=== PATIENT | male | born 1965 | race Caucasian/White ===

== ENCOUNTER 2016-09-04 21:56 | Inpatient (IN) | payer OTHER ==
[~2016-09-04] VITALS: Ht 188 cm; Wt 102.7 kg
[~2016-09-04 21:56] MED LIST: FURO40TA4 PO; NADO80TA PO; PANT40TA3 PO; SPIR50TA2 PO
[2016-09-04 22:00] VITALS: BP 142/70; PULSE 119; RESP 24; O2SAT 98
--- NOTE | 2016-09-04 22:28 | ED.REPORT ---
HPI-General Illness Date of Service Sep 04, 2016 ED Provider: Raghav Wang MD A 51 year old male with a history of liver cirrhosis, cholelithiasis, and esophageal varices presents to the ED complaining of Fever (max temp 104) and chills onset 1914 today. At onset, the patient's temperature was 102.9, measured while patient was under blankets. The patient took Motrin, and measured their temperature 45 minutes later with a result of 104. Associated symptoms include cough that accompanies deep inspiration, and headache. The patient denies any abdominal pain. He has been told not to take Tylenol. The patient denies having had cholecystectomy in the past. Nursing Notes Stated Complaint: HIGH FEVER Chief Complaint: General Complaint Nursing Notes Reviewed: Yes Allergies: Coded Allergies: No Known Allergies (Unverified , 09/17/15) Scheduled Furosemide (Furosemide) 40 Mg Tablet 40 MG PO DAILY Nadolol (Nadolol) 80 Mg Tablet 80 MG PO DAILY Pantoprazole DR (Pantoprazole DR) 40 Mg Tablet.dr 40 MG PO DAILY Spironolactone (Spironolactone) 50 Mg Tablet 50 MG PO BID General Time Seen by MD: 22:20 Chief Complaint Fever Hx Obtained From: Patient, Spouse Sudden in Onset?: Yes Onset Occurred: 1 - 4 hours ago Symptom Duration: Since onset Severity: Current: Moderate Severity: Maximum: Moderate Recent Healthcare: No recent doctor visit Similar Sx Previous: No Past Medical History Past Medical History Notes: Patient is being seen by Dr. Frances at [facility]. Past Medical History Cirrhotic liver disease. Cholelithiasis. Esophageal varices. GI Bleed. Patient did get flu shot this year. Not on blood thinners, blood is thin due to liver disease. He does not take vitamin K. The patient visited the ED last year with cholelithiasis and fever, but did not recieve cholecystectomy. Patient does not take any pain medications. Past Surgical History Denies: Cholecystectomy Smoking History Never Smoker Ambulatory Status Independent Review of Systems Full Review of Systems Constitutional: Reports: Chills, Fever Respiratory: Reports: Non-productive cough (accompanies deep inspiration.) GI: Denies: Abdominal pain Neurologic: Reports: Headache Complete sys rev & neg: except as marked. Physical Exam Vital Signs Vital Signs Date Time Temp Pulse Resp B/P Pulse Ox O2 Delivery O2 Flow Rate FiO2 09/05/16 00:11 37.4 4/5/17 22:00 39.1 119 24 142/70 98 Room Air Initial VS: Reviewed, Vital signs abnormal Respiratory: Breath sounds normal, Clear to auscultation, No respiratory distress Cardiovascular: Regular rate & rhythm, Heart sounds normal Abdomen / GI: Soft, Non-tender, No guarding, No rebound General/Constitutional: Awake, Alert Patient is not icteric. They are a little dehydrated, lips are dry. Head / Eyes: Atraumatic, Normocephalic, PERRL, EOMI Neck: Supple (Neck is fully supple) Upper Extremities Upper Extremity / MS: No swelling, No edema Skin: Warm, Dry Neurologic: Oriented X3, Speech NL Interpretation & Diagnostics Lab Results Interpretation Result Diagram: 09/04/16220909/04/162209 Test 09/04/16 22:10 09/04/16 23:43 White Blood Count 5.8th/mm3 (3.8-10.1) Red Blood Count 3.94mil/mm3 (4.40-5.80) Hemoglobin 13.2g/dL (13.8-17.2) Hematocrit 37.1% (41.0-50.0) Mean Corpuscular Volume 94.2fL (81-100) Mean Corpuscular Hemoglobin 33.5pg (27.0-35.0) Mean Corpuscular Hemoglobin Concent 35.6% (32.0-37.0) Red Cell Distribution Width 15.6% (12.3-15.4) Platelet Count 62bil/L (150-400) Neutrophils (%) (Auto) 91.0% (40-74) Lymphocytes (%) (Auto) 4.9% (14-46) Monocytes (%) (Auto) 2.9% (4-12) Eosinophils (%) (Auto) 0.7% (0-5) Basophils (%) (Auto) 0.2% (0-3) Prothrombin Time 12.5sec (8.1-12.5) Prothromb Time International Ratio 1.16ratio Sodium Level 136mEq/L (134-144) Potassium Level 3.6mEq/L (3.5-5.2) Chloride Level 106mEq/L (97-108) Carbon Dioxide Level 17mmol/L (18-29) Blood Urea Nitrogen 10mg/dL (6-24) Creatinine 0.57mg/dL (0.76-1.27) Estimat Glomerular Filtration Rate 159mL/min (>59) Glucose Level 168mg/dL (60-99) Lactic Acid Level 2.1mmol/L (0.4-2.0) Calcium Level 8.1mg/dL (8.5-10.1) Total Bilirubin 3.0mg/dL (0.0-1.2) Aspartate Amino Transf (AST/SGOT) 115U/L (0-50) Alanine Aminotransferase (ALT/SGPT) 66U/L (0-44) Alkaline Phosphatase 79U/L (25-150) Troponin T 0.010ug/L (0.0-0.011) Pro-B-Type Natriuretic Peptide 38.84pg/mL (0-121) Total Protein 5.7g/dL (6.4-8.4) Albumin 3.1g/dL (3.4-5.0) Procalcitonin 0.24ng/mL (0.00-0.08) Urine Color Cee (YELLOW) Urine Appearance Hazy (CLEAR,HAZY) Urine pH 6.0 (5.0-8.0) Urine Specific [place] 1.036 (1.003-1.035) Urine Protein 30mg/dL (NEG,TRACE) Urine Glucose (UA) 100mg/dL (NEGATIVE) Urine Ketones 15mg/dL (NEGATIVE) Urine Occult Blood Negative (NEGATIVE) Urine Nitrite Positive (NEGATIVE) Urine Bilirubin Moderate (NEGATIVE) Urine Ictotest Positive (Negative) Urine Urobilinogen >8mg/dL (NORMAL) Urine Leukocyte Esterase Negative (NEGATIVE) Urine RBC 0-2/hpf (0-2) Urine WBC 0-5/hpf (0-5) Urine Epithelial Cells Few/hpf (NONE-MOD) Urine Crystals None seen (NONE SEEN) Urine Bacteria Few/hpf (NONE-FEW) Urine Hyaline Casts None/lpf (NONE) Urine Granular Casts None seen (NONE SEEN) Urine Waxy Casts None seen (NONE SEEN) Urine Red Blood Cell Casts None seen (NONE SEEN) Urine White Blood Cell Casts None seen (NONE SEEN) Urine Mucus Present (None Seen) Urine Trichomonas None seen (NONE SEEN) Urine Yeast None (NONE SEEN) Urinalysis Comment Urine Culture Reflexed Indicated Lab Results Interpretation: Mildly elevated lactic acid and mildly decreased carbon dioxide. Elevated nonfasting blood glucose. ECG Interpretation ECG Interpretation: Rate is 116. Sinus tachycardia. Consider left atrial enlargement. Time: 01:50 Interpreted by: ED physician X-Ray Chest Interpretation Chest Xray Interpretation: IMPRESSION: Normal 09/05/2016, 0027. Interpretation / Wet Read by: Wet read Resident Re-Eval/Medical Decision Med Decision/Clinical Course 51-year-old male with a history of liver failure presents with fever. His physical examination is totally benign with no cause for fever found. He is tachycardic and does meet criteria for SIRS. I find no clues at this time for the source of the fever. Case was discussed with and the patient will be admitted for further observation. Cultures were obtained and he was hydrated. Antibiotics were withheld for the time being pending a source. Source of Hx: Old records Time of Eval: 22:32 Re-Evaluation/Progress Note: Rechecked patient and explained test to check his liver enzymes. Time of Eval: 00:52 Re-Evaluation/Progress Note: Rechecked patient who still feels terrible. Explained plan for admission. Patient understands and agrees with the plan. At recheck, neck is completely supple and nontender. Reviewed all systems for potential source of infection and all are negative. Consultation : Referral / Consult Name: Juan Qureshi MD Call Returned at: 01:02 Soil Analyst: Agrees with eval, Agrees with plan, Accepts admit Note: Discussed patient case with Dr. Qureshi who accepts patient admit. Counseled Regarding: Diagnosis, Lab results, Need for follow-up, When/why to return to ED Discharge & Departure Primary Impression: Fever, unknown origin Additional Impression: Dehydration Disposition: ADMITTED TO HOSPITAL Discharge Condition All VS Reviewed: Yes Condition: Stable Referrals: Jeana Reyes DO (PCP) Mari Attestation Portions of this note were transcribed by Damian Rowe. I, Dr. Wang personally performed the history, physical exam and medical decision-making; I reviewed and confirmed the accuracy of the information in the transcribed note. Signed by: Mari Kaufman, 09/05/2016, 0200. copies to: Jeana Reyes Howard L MD Sep 04, 2016 22:28 Damian Rowe Sep 04, 2016 22:35
[2016-09-04 22:55] LABS: BASOPHILS % (AUTO) 0.2 % (0-3); EOSINOPHILS % (AUTO) 0.7 % (0-5); MONOCYTES % (AUTO) 2.9 % (4-12); Mean Corpuscular Hemoglobin 33.5 pg (27.0-35.0); Mean Corpuscular Volume 94.2 fL (81-100); Platelet Count 62 bil/L (150-400)
[2016-09-04 23:12] LABS: INR 1.16 ratio
[2016-09-04 23:18] LABS: TROPONIN T 0.01 ug/L (0.0-0.011)
[2016-09-04] MEDS ORDERED: 0.9% Sodium Chloride 1,000 ML IV ONE (23:30)
[2016-09-04 23:53] LABS: APPEARANCE,URINE HAZY (CLEAR,HAZY); COLOR,URINE AMBER (YELLOW)
[2016-09-04 23:54] LABS: OCCULT BLOOD,URINE NEGATIVE (NEGATIVE); UROBILINOGEN,URINE >8 mg/dL (NORMAL)
[2016-09-05] VITALS (9 sets, daily range): BP systolic 95–113; BP diastolic 38–64; PULSE 89–112; RESP 16–22; O2SAT 92–99
[2016-09-05 00:38] LABS: ICTOTEST,URINE POSITIVE (Negative)
[2016-09-05] MEDS ORDERED: 0.9% Sodium Chloride 1,000 ML IV ONE (00:50)
[2016-09-05] MEDS: Dextrose 5% 0.45% NaCl 1,000 ML IV SCH ×2 (01:17→11:17)
[2016-09-05] MEDS ORDERED: Ondansetron 2 mg/mL 2 mL Inj IVPUSH PRN ×2 (01:20→02:55)
[2016-09-05] MEDS ORDERED: Alum-Mag Hydrox-Simeth 30 mL Suspension PO PRN ×2 (01:20→02:55)
--- NOTE | 2016-09-05 02:00 | PCM.HPMED ---
Subjective Date of Service Sep 05, 2016 Primary Provider: Admitting Physician: Juan Qureshi MD Primary Care Physician: Noplenin Attending Physician: Juan Qureshi MD Admit Status: From the Emergency Department Chief Complaint: Fever, chills, cough, headache History of Present Illness: Chau is a pleasant 51-year-old male with past medical history of liver cirrhosis diagnosed age 1.5 following a liver biopsy, history of cholelithiasis , and is not a surgical candidate due to his liver cirrhosis, history of esophageal varices, who presented to the ED for acute onset fever of 102.9 shortly after having eaten his dinner, with associated chills, rigors, nausea, and mild wheeze and headache onset 1715 on 09/04/2016. Patient states he felt ill suddenly, took one single dose of Motrin and 45 minutes later his temperature was 104.0 prompting his visit to the emergency department. Of note patient states he had very little to drink today and was only able to urinate a small amount of dark-colored urine. Patient denies chest pain, asthma, COPD, diaphoresis, cough, vomiting, diarrhea, constipation, abdominal pain, dysuria. Patient's fitness assistant is Dr. Estela mauricio at [facility]. Patient states he has a scheduled appointment on October 01 for endoscopy for 2 evaluate his esophageal varices which takes place every 2 years. Patient was admitted to the hospital for fever of unknown origin. Vitals: Temperature 39.1, pulse 119, respiratory rate 24, blood pressure 142/70 with a map of 94, pulse oximetry 98% on room air Repeat vitals: 37.4 Hemogram showed WBC's 5.8 with 91% neutrophils, H/H 13.2/37.1, platelet count 62 , Chemistry panel, sodium 136, potassium 3.6, chloride 106, CO2 17, BUN 10, creatinine 0.57, glucose 168, lactic acid 2.1, AST 1:15, ALT 66, troponin 0.010 , proBNP 38.84 In normal range PT and INR UA was significant for hazy urine, pH 6.0 ketones 15, positive nitrite moderate bilirubin, positive echo test, urine urobilinogen greater than 8, few urine bacteria, mucus present otherwise negative UA In ED patient received 2 L IV fluids. Patient was placed on D5 half-normal saline at rate of 100ml per hour Urine culture ordered and pending Blood Culture ordered and pending 2 Normal chest x-ray EKG showed sinus tachycardia with a rate of 116, normal FL interval, normal QT C , axis, no ST or T-wave abnormalities. Review of Systems: A comprehensive review of systems was conducted and was negative except as mentioned in history of present illness. Allergies Coded Allergies: No Known Allergies (Unverified , 09/17/15) Home Medications Furosemide (Furosemide) 40 Mg Tablet 40 MG PO DAILY Nadolol (Nadolol) 80 Mg Tablet 80 MG PO DAILY Pantoprazole DR (Pantoprazole DR) 40 Mg Tablet.dr 40 MG PO DAILY Spironolactone (Spironolactone) 50 Mg Tablet 50 MG PO BID Ursodiol [facility] Patient is being seen by Dr. Frances at [facility]. Cirrhotic liver disease. Cholelithiasis. Esophageal varices. GI Bleed. Patient did get flu shot this year. Not on blood thinners, blood is thin due to liver disease. He does not take vitamin K. The patient visited the ED last year with cholelithiasis and fever, but did not recieve cholecystectomy. Patient does not take any pain medications. Surgical History Denies: Cholecystectomy Family History Noncontributory Social History Hx Alcohol Use: No (none x's 6 yrs.) Hx Substance Use: No Smoking Status: Never Smoker Exam Vital Signs Vital Sign - Last Date Time Temp Pulse Resp B/P Pulse Ox O2 Delivery O2 Flow Rate FiO2 09/05/16 00:11 37.4 09/04/16 22:00 119 24 142/70 98 Room Air Intake and Output 09/04/16 09/04/16 09/05/16 Cumulative From/Thru 15:00 23:00 07:00 09/04/16 22:00 - 09/04/16 23:27 Intake Total 1000 ml 1000 ml Balance 1000 ml 1000 ml Intake IV Total 1000 ml 1000 ml Exam General: Alert and oriented 3 no acute distress sitting at the side of bed speaking in full sentences. HEENT: NC/AT, eyes, PERRLA, EOMI, neck, soft supple, no adenopathy, no JVD, no masses, no thyromegaly, throat mucous membranes pink and moist, no erythema, no exudates. Lungs: CTAB all wolff, no wheezes, no rhonchi, no crackles, no adventitious lung sounds, no use of accessory muscles of respiration, good air movement, good respiratory effort. Heart: Regular rate and rhythm, grade 2/6 systolic murmur heard best over the second intercostal space at the left sternal border, S1-S2 present, no rub, no click, no distant heart sounds, Abdomen: Soft, periumbilical tenderness 1.5 inches to the right of the umbilicus , positive viscerosomatic reflex/Barr's point at the tip of the 12th rib on the right consistent with acute appendicitis, mild right upper quadrant tenderness to palpation, abdomen is nondistended, bowel sounds active, no rebound, no guarding, right flank surgical scar status post liver biopsy. Genitourinary: No CVA tenderness, positive suprapubic tenderness. Extremities: Muscle strength, 5 out of 5 upper/lower extremity and symmetric laterally, pulses equal and symmetric upper/lower extremity including radial and dorsalis pedis, 1+ edema proximal to the ankles Neurologic: Grossly neurologically intact, speaking in full sentences, no focal neurological signs. Skin: Warm, dry, no rash, IV line left arm Psychiatric: mood and affect are congruent and appropriate. Lab and Diagnostics Result Diagram: 09/04/16220909/04/162209 Assessment & Plan # Fever of unknown origin, present on admission, active - Patient complained of acute onset chills, rigors, fever of 104.0, nausea onset 1715 on 09/04/2016 - In the ED.Temperature 39.1, pulse 119, respiratory rate 24, blood pressure 142 /70 with a map of 94, pulse oximetry 98% on room air - Likely secondary to acute appendicitis, versus urinary tract infection - Urine culture ordered and pending - Culture ordered and pending # Periumbilical and suprapubic abdominal pain, present on admission, active - Physical exam findings consistent with early acute appendicitis including periumbilical tenderness to palpation 2 inches lateral to the umbilicus on the right. Patient had visceral somatic Barr's reflex point and on the tip of the 12th rib consistent with acute appendicitis. - We will order CT abdomen pelvis with contrast to evaluate for appendicitis - Continue IV normal saline at 100 mL per hour # Urinary tract infection, present on admission, active - Physical exam findings significant for suprapubic tenderness, patient has reduced urinary output onset today, however patient denies dysuria, - UA was significant for hazy urine, pH 6.0 ketones 15, positive nitrite moderate bilirubin, positive ichtotest, urine urobilinogen greater than 8, few urine bacteria, mucus present otherwise negative UA - Urine culture pending as stated previously # Transaminitis, present on admission, active - AST 115, ALT 66 - Likely secondary to chronic liver cirrhosis and cholelithiasis - We will continue home medication ursodiol # Lactic acidosis, present on admission, active - Lactic acid 2.1 # Ketonuria, present remission, active - Ketones 15 # Bilirubinuria present remission, active - As seen on UA - Likely secondary to chronic liver cirrhosis and cholelithiasis # Hyperglycemia, PreserVision, active - Glucose 168 - We will get hemoglobin A1c - We will continue to monitor serial glucose #Thrombocytopenia, present remission, active - Platelets 62 - Secondary to chronic liver cirrhosis Chronic problems Cirrhotic liver disease. - Patient was diagnosed with liver cirrhosis at age 2.5 years old - Patient has old surgical scar on the abdomen from biopsy at age 1 - Patient also has history of alcohol abuse in life however has no longer drinks alcohol. Cholelithiasis. Esophageal varices. -Patient has appointment with Dr. Frances at [facility] for upper endoscopy on October 01 GI Bleed. Patient does not take any pain medications. Disposition: Admitted to in patient service with expected length of stay greater than 2 days, secondary to severity of presenting symptoms, treatment plan, complexity of clinical work up, and risk of adverse events. CODE STATUS: Full code PCP: [facility] D[facility] PE prophylaxis: Enoxaparin Contact: Ludivina [phone] Vitals: Temperature 39.1, pulse 119, respiratory rate 24, blood pressure 142/70 with a map of 94, pulse oximetry 98% on room air Repeat vitals: 37.4 Hemogram showed WBC's 5.8 with 91% neutrophils, H/H 13.2/37.1, platelet count 62 , Chemistry panel, sodium 136, potassium 3.6, chloride 106, CO2 17, BUN 10, creatinine 0.57, glucose 168, lactic acid 2.1, AST 115, ALT 66, troponin 0.010, proBNP 38.84 In normal range PT and INR UA was significant for hazy urine, pH 6.0 ketones 15, positive nitrite moderate bilirubin, positive ichtotest, urine urobilinogen greater than 8, few urine bacteria, mucus present otherwise negative UA In ED patient received 2 L IV fluids. Patient was placed on D5 half-normal saline at rate of 100ml per hour Urine culture ordered and pending Blood Culture ordered and pending 2 Normal chest x-ray EKG showed sinus tachycardia with a rate of 116, normal FL interval, normal QT C , axis, no ST or T-wave abnormalities. Pain Evaluation: Adequate Pain Control VTE Prophylaxis: Sub-Q Enoxaparin Resuscitation Status: CPR: Attempt Resuscitation Attending Statement The patient was seen and examined together with Dr. Logan 09/05/2016 and I have added additional information to the note above. -- fever, chills ct abd pelvis with contrast, blood cultures. u/a no wbc to suggest acute uti. has elevated lft, bili however may be chronic may need ruq u/s abdominal exam benign. abd: soft, nt, mild distension, no rebound tenderness, no peritoneal signs. no ruq tenderness, no holley's sign. Butch Alejandra DO Sep 05, 2016 01:59 Juan Qureshi MD Sep 05, 2016 06:01
[2016-09-05] MEDS: 0.9% Sodium Chloride 1,000 ML IV SCH ×2 (02:51→14:05)
[2016-09-05] MEDS ORDERED: Polyethylene Glycol (PEG) 17 Gm Powder PO PRN (02:55)
--- NOTE | 2016-09-05 04:25 | NUR ---
Admission Pt transferred from ED via stretcher. Pt able to walk self from stretcher to bed. Alert and orientated time three. Admission competed. to bring in medication list for reconciliation tomorrow. On RA. VSS. No current concerns.
--- NOTE | 2016-09-05 04:40 | NUR ---
Off unit Pt off unit for pelvic CT. In w/c for transfer. Pt without concerns.
--- NOTE | 2016-09-05 05:04 | NUR ---
Back to unit Pt back from CT. No concerns.
[2016-09-05 06:03] LABS: BASOPHILS % (AUTO) 0.1 % (0-3); EOSINOPHILS % (AUTO) 0.1 % (0-5); MONOCYTES % (AUTO) 6.6 % (4-12); Mean Corpuscular Hemoglobin 33.6 pg (27.0-35.0); Mean Corpuscular Volume 95.3 fL (81-100); NEUTROPHILS % (AUTO) 87.8 % (40-74); Platelet Count 55 bil/L (150-400)
--- NOTE | 2016-09-05 08:23 | DRSVH ---
PROCEDURE: X-RAY CHEST ONE VIEW, PORTABLE ([id number]) INDICATIONS: fever TECHNIQUE: One view of the chest was acquired. COMPARISON: [facility], CR, XR [facility] CXR MIN 3VW RT, 12/04/2015, 9:09. FINDINGS: Surgical changes and devices: None. Lungs and pleura: No pleural effusions or pneumothorax. Mild interstitial opacity within the bilater al mid and lower lungs. Mediastinum: Mediastinal contours appear normal. Heart size is normal. Bones and chest wall: No suspicious bony lesions. Overlying soft tissues appear unremarkable. IMPRESSION: Mild atypical pneumonia. Dictated by: Sean Mcclendon M.D. on 09/05/2016 at 8:21 Approved by: Sean Mcclendon M.D. on 09/05/2016 at 8:22
[2016-09-05] MEDS ORDERED: URSO500T9 PO (08:56)
--- NOTE | 2016-09-05 09:51 | DRSVH ---
PROCEDURE: CT ABDOMEN AND PELVIS WITH CONTRAST ([id number]) INDICATIONS: Abdominal pain TECHNIQUE: After the administration of oral and intravenous contrast, 5 mm thick sections acquired from the diap hragms to the symphysis. 5 mm thick coronal and sagittal reformats were performed. For radiation do se reduction, the following was used: automated exposure control, adjustment of mA and/or kV accordi ng to patient size. COMPARISON: [facility], CT, CT ABD PELVIS W CON, 06/04/2015, 2:28. FINDINGS: Image quality: Excellent. ABDOMEN: Lung bases: Minimal left pleural effusion and dependent changes. The previously identified 5 mm left lower lobe nodule is less prominent on today's exam. Solid organs: Liver is shrunken and nodular.. There are multiple punctate foci of low attenuation, u nchanged. Gallbladder demonstrates numerous dependent calcifications without wall thickening. No int erval change. The spleen is enlarged. Biliary system is non-dilated. Pancreas enhances normally. N o adrenal nodules. Kidneys are normal in size and enhancement, without hydronephrosis. Peritoneum and bowel: Stomach, small bowel, and colon loops are nonobstructed. There is a mildly thi ckened appearance of scattered small bowel loops, also incompletely distended. No free fluid or air. There is distal esophageal thickening with hiatal hernia. Nodes and vessels: No retroperitoneal or mesenteric adenopathy. Aorta and inferior vena cava are no rmal in caliber. Prominent splenic and gastroesophageal varices are present. There are numerous vari mainor identified within the abdomen and pelvis particularly in the right bibi-abdomen. There is caverno us transformation of the portal vein with extensive vascular collaterals. 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 There is recanalization of the umbilical vein. Splenorenal shunt is p resent. Miscellaneous: No ventral hernias. PELVIS: Genitourinary: Bladder wall thickness is normal. Miscellaneous: No inguinal hernias or adenopathy. Bones: No suspicious bony lesions. No vertebral body compression fractures. IMPRESSION: 1. Trace left pleural effusion and dependent changes. 2. Cirrhotic appearing liver with splenomegaly and extensive collateral system as well as unchanged p artial portal vein thrombosis as above. 3. Mild, incomplete distention of small bowel loops with appearance of thickening. This could be rela bozena to incomplete distention versus enteritis and clinical correlation is recommended. Dictated by: Krystle Ambriz M.D. on 09/05/2016 at 9:03 Approved by: Krystle Ambriz M.D. on 09/05/2016 at 9:50
--- NOTE | 2016-09-05 14:32 | NUR ---
Social Work: Screen D: Per EMR review, pt is a 51 year old male admitted for fever unknown source; dehydration. Pt is [facility]. PCP is through the [facility]. NOK is pt's , Ludivina Del Cid. Advanced directives not completed- SENIOR JAVA ARCHITECT provided pt with information. Readmit score is not entered at this time. SENIOR JAVA ARCHITECT met with pt at bedside. Sw role explained and contact info provided. See initial assessment. Pt lives in [place] with his spouse. He is I with ADLs at baseline. He has never had HH or half-way. Pt and express no concerns about discharge home once medically stable. Pt's will transport. A: Pt who is I at baseline. P: Anticipate pt to discharge home via POV with no identified sw needs; SENIOR JAVA ARCHITECT to continue to follow. SYDNEY Ramachandran
--- NOTE | 2016-09-05 16:40 | PCM.PNMED ---
Subjective Date of Service Sep 05, 2016 Subjective Patient resting in bed with a visit with him, at bedside. Still having fevers but overall fever trend is decreasing. No significant abdominal pain, cough, diarrhea. No rashes or lesions. Exam Vital Signs Vital Sign - Last Date Time Temp Pulse Resp B/P Pulse Ox O2 Delivery O2 Flow Rate FiO2 09/05/16 16:11 38.7 99 20 112/61 92 Room Air 09/05/16 08:41 4.00 Intake and Output 09/04/16 09/04/16 09/05/16 Cumulative From/Thru 15:00 23:00 07:00 09/04/16 22:00 - 09/05/16 06:35 Intake Total 2889 ml 2889 ml Output Total 450 ml 450 ml Balance 2439 ml 2439 ml Intake Oral 450 ml 450 ml IV Total 2439 ml 2439 ml Output Urine Total 450 ml 450 ml # Bowel Movements 0 0 Exam General: Alert, Oriented X3, NAD Head: Normocephalic, atraumatic Eyes: SHANTI, EOMI, no scleral Icterus Chest: clear to auscultation B/L, no wheezing rales or rhonchi Heart: Regular rate and rhythm. Normal S1, S2, no murmurs noted Abdomen: soft, non-tender. Bowel sounds are normoactive. No guarding or rebound. Extremities: no cyanosis, clubbing or edema. IVs and Medications Medications Reviewed: Medications were reviewed in detail Lab and Diagnostics Result Diagram: 09/05/16 0540 09/05/16 0540 Assessment & Plan # Fever of unknown origin, present on admission, active -Unknown etiology with no clear possibilities. CT positive for possible enteritis with dilated loops of small bowel but no bowel obstruction -No current antibiotics -Fever graph is trending down. Cultures pending # Periumbilical and suprapubic abdominal pain, present on admission, active -May be viral enteritis, unclear at this point. No recent sick contacts - Continue IV normal saline at 100 mL per hour # Possible Urinary tract infection, present on admission, active - Physical exam findings significant for suprapubic tenderness, patient has reduced urinary output onset today, however patient denies dysuria, - UA was significant for hazy urine, pH 6.0 ketones 15, positive nitrite moderate bilirubin, positive ichtotest, urine urobilinogen greater than 8, few urine bacteria, mucus present otherwise negative UA # Transaminitis, present on admission, active - AST 115, ALT 66 - Likely secondary to chronic liver cirrhosis and cholelithiasis - We will continue home medication ursodiol # Lactic acidosis, present on admission, active - Lactic acidosis resolved # Ketonuria, present remission, active - Ketones 15 # Bilirubinuria present remission, active - As seen on UA - Likely secondary to chronic liver cirrhosis and cholelithiasis # Hyperglycemia. - Glucose 168 - Checking hemoglobin A1c - We will continue to monitor serial glucose #Thrombocytopenia, present remission, active - Platelets 62 - Secondary to chronic liver cirrhosis Chronic problems Cirrhotic liver disease. - Patient was diagnosed with liver cirrhosis at age 2.5 years old - Patient has old surgical scar on the abdomen from biopsy at age 1 - Patient also has history of alcohol abuse in life however has no longer drinks alcohol. Cholelithiasis. Esophageal varices. -Patient has appointment with Dr. Frances at [facility] for upper endoscopy on October 01 GI Bleed. Patient does not take any pain medications. CODE STATUS: Full code DVT prophylaxis: Lovenox Disposition: Patient independent with ADLs, likely home at discharge pending hospital course. VTE Prophylaxis: Sub-Q Enoxaparin Resuscitation Status: CPR: Attempt Resuscitation Amando Callahan DO Sep 05, 2016 16:39
--- NOTE | 2016-09-05 18:48 | NUR ---
Urinary output noted patient had minimal urinary output all shift with about 2-3L Po/IV intake throughout day. pt denies pain or urge to urinate. pt voided about 200ml dark savannah urine. pt lung sounds clear with decreased bases. Pitting edema BLE. bladder scan revealed only about 2ml. situation discussed with MD, home diuretics restarted. Will continue to monitor.
--- NOTE | 2016-09-05 22:04 | PCM.CONPHA ---
Subjective Date of Service: Sep 05, 2016 Requesting Provider: Juan Qureshi MD Fever, chills, cough, headache Reason for Pharmacy Consult: Vancomycin Dosing Objective Vital Signs Date Time Temp Pulse Resp B/P Pulse Ox O2 Delivery O2 Flow Rate FiO2 09/05/16 19:46 Supplement Oxygen 09/05/16 19:42 37.1 95 20 107/54 96 Room Air 09/05/16 16:11 38.7 99 20 112/61 92 Room Air 09/05/16 11:47 38.0 98 22 113/51 94 Room Air 09/05/16 08:41 37.7 94 20 112/55 98 Nasal Cannula 4.00 09/05/16 08:41 Supplement Oxygen 09/05/16 08:00 93 09/05/16 05:03 36.9 89 20 113/64 98 Nasal Cannula 4.00 09/05/16 02:06 38.6 112 16 113/38 98 Room Air 09/05/16 01:56 38.2 112 18 96/54 99 Nasal Cannula 4.00 09/05/16 00:11 37.4 Intake and Output 09/03/16 09/04/16 09/05/16 00:00 00:00 00:00 Intake Total 1000 ml Balance 1000 ml Weight (Kilograms): 103.700 Height (Feet): 6 Height (Inches): 2.00 Test 09/04/16 22:10 09/04/16 23:43 09/05/16 05:40 Prothrombin Time 12.5sec (8.1-12.5) Prothromb Time International Ratio 1.16ratio Lactic Acid Level 2.1mmol/L (0.4-2.0) Troponin T 0.010ug/L (0.0-0.011) Pro-B-Type Natriuretic Peptide 38.84pg/mL (0-121) Procalcitonin 0.24ng/mL (0.00-0.08) Urine Color Cee (YELLOW) Urine Appearance Hazy (CLEAR,HAZY) Urine pH 6.0 (5.0-8.0) Urine Specific Epps 1.036 (1.003-1.035) Urine Protein 30mg/dL (NEG,TRACE) Urine Glucose (UA) 100mg/dL (NEGATIVE) Urine Ketones 15mg/dL (NEGATIVE) Urine Occult Blood Negative (NEGATIVE) Urine Nitrite Positive (NEGATIVE) Urine Bilirubin Moderate (NEGATIVE) Urine Ictotest Positive (Negative) Urine Urobilinogen >8mg/dL (NORMAL) Urine Leukocyte Esterase Negative (NEGATIVE) Urine RBC 0-2/hpf (0-2) Urine WBC 0-5/hpf (0-5) Urine Epithelial Cells Few/hpf (NONE-MOD) Urine Crystals None seen (NONE SEEN) Urine Bacteria Few/hpf (NONE-FEW) Urine Hyaline Casts None/lpf (NONE) Urine Granular Casts None seen (NONE SEEN) Urine Waxy Casts None seen (NONE SEEN) Urine Red Blood Cell Casts None seen (NONE SEEN) Urine White Blood Cell Casts None seen (NONE SEEN) Urine Mucus Present (None Seen) Urine Trichomonas None seen (NONE SEEN) Urine Yeast None (NONE SEEN) Urinalysis Comment Urine Culture Reflexed Indicated White Blood Count 8.1th/mm3 (3.8-10.1) Red Blood Count 3.60mil/mm3 (4.40-5.80) Hemoglobin 12.1g/dL (13.8-17.2) Hematocrit 34.3% (41.0-50.0) Mean Corpuscular Volume 95.3fL (81-100) Mean Corpuscular Hemoglobin 33.6pg (27.0-35.0) Mean Corpuscular Hemoglobin Concent 35.3% (32.0-37.0) Red Cell Distribution Width 15.5% (12.3-15.4) Platelet Count 55bil/L (150-400) Neutrophils (%) (Auto) 87.8% (40-74) Lymphocytes (%) (Auto) 3.8% (14-46) Monocytes (%) (Auto) 6.6% (4-12) Eosinophils (%) (Auto) 0.1% (0-5) Basophils (%) (Auto) 0.1% (0-3) Sodium Level 136mEq/L (134-144) Potassium Level 3.8mEq/L (3.5-5.2) Chloride Level 106mEq/L (97-108) Carbon Dioxide Level 16mmol/L (18-29) Blood Urea Nitrogen 12mg/dL (6-24) Creatinine 0.64mg/dL (0.76-1.27) Estimat Glomerular Filtration Rate 139mL/min (>59) Glucose Level 115mg/dL (60-99) Calcium Level 7.6mg/dL (8.5-10.1) Total Bilirubin 3.7mg/dL (0.0-1.2) Aspartate Amino Transf (AST/SGOT) 133U/L (0-50) Alanine Aminotransferase (ALT/SGPT) 87U/L (0-44) Alkaline Phosphatase 64U/L (25-150) Total Protein 5.0g/dL (6.4-8.4) Albumin 2.8g/dL (3.4-5.0) Assessment/Plan Assessment/Plan Vanco per Rx Indications: FUO/acute appendicitis ?/UTI ? Temp: 39.1; WBC 8.1; Vd 67 Trough Goal : 10 - 15; 1st trough before 4th dose on Sat 48 @ 10AM LD 2250mg then 2000mg q12h; Issac Vega PharmD Sep 05, 2016 22:04
[2016-09-05] MEDS ORDERED: Vancomycin Inj 2,250 MG in 0.9% Sodium Chloride 500 ML IV ONE (22:30)
[2016-09-06] VITALS (7 sets, daily range): BP systolic 108–138; BP diastolic 64–72; PULSE 61–95; RESP 18–20; O2SAT 96–97
--- NOTE | 2016-09-06 01:45 | NUR ---
Mobility Pt gave himself bed bath without issues. Up in room independently. No current concerns.
[2016-09-06 04:11] LABS: BASOPHILS % (AUTO) 0.4 % (0-3); EOSINOPHILS % (AUTO) 1.8 % (0-5); MONOCYTES % (AUTO) 14.1 % (4-12); Mean Corpuscular Hemoglobin 33.3 pg (27.0-35.0); Mean Corpuscular Volume 94.8 fL (81-100); NEUTROPHILS % (AUTO) 68.3 % (40-74); Platelet Count 41 bil/L (150-400)
[2016-09-06] MEDS: Vancomycin Dose per Pharmacist XX SCH (08:30)
[2016-09-06] MEDS: Vancomycin Inj 2,000 MG in 0.9% Sodium Chloride 500 ML IV SCH ×2 (10:33→22:38)
--- NOTE | 2016-09-06 15:22 | PCM.PNMED ---
Subjective Date of Service Sep 06, 2016 Subjective Patient still feels ill, overnight events noted with blood cultures coming back positive and has been started on vancomycin. The patient is not an IV drug user , he has had bacteremia in the past secondary to lower extremity cellulitis. He has no open wounds currently but does admit to some increased pain of his right lower extremity which is also warmer than his left. No open wounds. He denies chest pain, nausea vomiting, shortness of breath Exam Vital Signs Vital Sign - Last Date Time Temp Pulse Resp B/P Pulse Ox O2 Delivery O2 Flow Rate FiO2 09/06/16 12:18 37.2 91 20 121/68 96 Room Air 09/05/16 08:41 4.00 Intake and Output 09/05/16 09/05/16 09/06/16 Cumulative From/Thru 15:00 23:00 07:00 09/04/16 22:00 - 09/06/16 06:24 Intake Total 2879 ml 1000 ml 6768 ml Output Total 275 ml 375 ml 1100 ml Balance 2604 ml 625 ml 5668 ml Intake Oral 1800 ml 500 ml 2750 ml IV Total 1079 ml 500 ml 4018 ml Output Urine Total 275 ml 375 ml 1100 ml # Bowel Movements 1 0 1 Exam General: Alert, Oriented X3, NAD Head: Normocephalic, atraumatic Eyes: SHANTI, EOMI, no scleral Icterus Chest: clear to auscultation B/L, no wheezing rales or rhonchi Heart: Regular rate and rhythm. Normal S1, S2, no murmurs noted Abdomen: soft, non-tender. Bowel sounds are normoactive. No guarding or rebound. Extremities: no cyanosis, clubbing or edema. Right lower extremity is slightly erythematous and warmer to the touch than left. No open wounds IVs and Medications Medications Reviewed: Medications were reviewed in detail Lab and Diagnostics Result Diagram: 09/06/16 0358 09/06/16 0358 Assessment & Plan #Bacteremia with gram-positive cocci -He has been started on vancomycin -Unknown etiology, possible right lower extremity cellulitis -CT positive for possible enteritis with dilated loops of small bowel but no bowel obstruction -Fever graph is trending down. Cultures pending # Periumbilical and suprapubic abdominal pain, present on admission, active -May be viral enteritis, unclear at this point. No recent sick contacts - Continue IV normal saline at 100 mL per hour # Possible Urinary tract infection, present on admission, active - Awaiting cultures # Transaminitis, present on admission, active - AST 115, ALT 66 - Likely secondary to chronic liver cirrhosis and cholelithiasis - We will continue home medication ursodiol # Lactic acidosis, present on admission, active - Lactic acidosis resolved # Ketonuria, present remission, active - Ketones 15 # Bilirubinuria present remission, active - As seen on UA - Likely secondary to chronic liver cirrhosis and cholelithiasis # Hyperglycemia. - Checking hemoglobin A1c - We will continue to monitor serial glucose #Thrombocytopenia, present remission, active - Platelets 62 - Secondary to chronic liver cirrhosis Chronic problems Cirrhotic liver disease. - Patient was diagnosed with liver cirrhosis at age 2.5 years old - Patient has old surgical scar on the abdomen from biopsy at age 1 - Patient also has history of alcohol abuse in life however has no longer drinks alcohol. Cholelithiasis. Esophageal varices. -Patient has appointment with Dr. Frances at [facility] for upper endoscopy on October 01 GI Bleed. Patient does not take any pain medications. CODE STATUS: Full code DVT prophylaxis: Heparin products contraindicated with thrombocytopenia Disposition: Patient independent with ADLs, likely home at discharge pending hospital course. VTE Prophylaxis: Sub-Q Enoxaparin Resuscitation Status: CPR: Attempt Resuscitation Amando Callahan DO Sep 06, 2016 15:22 VTE Prophylaxis: Sub-Q Enoxaparin Resuscitation Status: CPR: Attempt Resuscitation Amando Callahan DO Sep 06, 2016 15:22
--- NOTE | 2016-09-06 23:19 | NUR ---
PAIN/TEMP Pt c/o minor abdominal pain, denied N/V and denied any PRN medication. Pt had a low grade temp of 100.4, no other concerns noted.
[2016-09-07] VITALS (9 sets, daily range): BP systolic 108–138; BP diastolic 63–77; PULSE 89–106; RESP 16–20; O2SAT 95–100
[2016-09-07 06:25] LABS: BASOPHILS % (AUTO) 0.7 % (0-3); EOSINOPHILS % (AUTO) 2.2 % (0-5); MONOCYTES % (AUTO) 14.1 % (4-12); Mean Corpuscular Hemoglobin 33.6 pg (27.0-35.0); Mean Corpuscular Volume 93.9 fL (81-100); NEUTROPHILS % (AUTO) 58.4 % (40-74); Platelet Count 47 bil/L (150-400)
[2016-09-07] MEDS: Vancomycin Dose per Pharmacist XX SCH (08:24)
[2016-09-07] MEDS ORDERED: Vancomycin Serum Trough XX ONE (10:00)
[2016-09-07] MEDS: Vancomycin Inj 2,000 MG in 0.9% Sodium Chloride 500 ML IV SCH (11:55)
[2016-09-07 12:04] LABS: Vancomycin, Trough 5.7 mcg/mL
--- NOTE | 2016-09-07 12:16 | NUR ---
Social Work Note: Continued Discharge Planning Data& Assessment: Per MD pt is not medically ready for discharge at this time. SW met with pt at bedside to check in and assess for any unmet needs. Pt denies any needs at this time. Pt has been started on iv abx due to positive blood cultures. SW to continue to follow to r/o IV abx at home. SW phone number on pt white board. No other discharge needs identified at this time. Plan: Anticipated discharge home via POV when medically ready. SW to continue to follow to r/o IV abx at home. Pt denies any needs. No other discharge needs identified at this time. SYDNEY Vallejo
--- NOTE | 2016-09-07 14:56 | DRSVH ---
PROCEDURE: US EXTREMITY SONOGRAM LIMITED ([id number]) INDICATIONS: r/u abscess TECHNIQUE: Real-time scanning was performed of the anterior aspect of the right lower leg, with imag e documentation. COMPARISON: None. FINDINGS: There is a prominent amount of edema in the subcutaneous tissues. No loculated fluid collec tion is seen. There is increased vascularity somewhat generalized, not around any particular focus or fluid collection or phlegmonous area. IMPRESSION: Prominent amount of edema and no evidence for abscess. Dictated by: Calderon Merrill M.D. on 09/07/2016 at 14:53 Approved by: Calderon Merrill M.D. on 09/07/2016 at 14:55
--- NOTE | 2016-09-07 17:58 | NUR ---
Activity Patient A&Ox3.Afebrile, VSS. C/o mild leg discomfort but declined any interventions. Patient up independently in room, uses call light appropriately. at bedside and call light within patient reach.
--- NOTE | 2016-09-07 18:27 | PCM.PNMED ---
Subjective Date of Service Sep 07, 2016 Subjective Patient resting in bed comfortably, he feels a little bit better today. Right lower extremity with less pain and erythema. No chest pain, nausea vomiting, diarrhea or constipation. Exam Vital Signs Vital Sign - Last Date Time Temp Pulse Resp B/P Pulse Ox O2 Delivery O2 Flow Rate FiO2 09/07/16 16:31 36.8 93 18 132/72 97 Room Air 09/05/16 08:41 4.00 Intake and Output 09/06/16 09/06/16 09/07/16 Cumulative From/Thru 15:00 23:00 07:00 09/04/16 22:00 - 09/07/16 06:39 Intake Total 550 ml 1070 ml 900 ml 9288 ml Output Total 600 ml 950 ml 2650 ml Balance 550 ml 470 ml -50 ml 6638 ml Intake Oral 520 ml 400 ml 3670 ml IV Total 550 ml 550 ml 500 ml 5618 ml Output Urine Total 600 ml 950 ml 2650 ml # Voids 4 4 # Bowel Movements 0 1 2 Exam General: Alert, Oriented X3, NAD Head: Normocephalic, atraumatic Eyes: SHANTI, EOMI, no scleral Icterus Chest: clear to auscultation B/L, no wheezing rales or rhonchi Heart: Regular rate and rhythm. Normal S1, S2, no murmurs noted Abdomen: soft, non-tender. Bowel sounds are normoactive. No guarding or rebound. Extremities: no cyanosis, clubbing or edema. Right lower extremity with erythema and warmth to the touch, improved. No open wounds, induration or fluctuance IVs and Medications Medications Reviewed: Medications were reviewed in detail Lab and Diagnostics Result Diagram: 09/07/16 0556 09/07/16 1010 Microbiology Microbiology 09/04/16 Blood Culture - Final, Complete Coag Negative Staphylococcus 09/06/16 MRSA (PCR) - Final, Complete 09/04/16 Urine Culture - Final, Complete No growth (<1,000 organisms/mL) Assessment & Plan #Bacteremia with MSSA -He was started on vancomycin which has been discontinued and Ancef has been started -Repeat blood cultures in the morning -Unknown etiology, possible right lower extremity cellulitis -CT positive for possible enteritis with dilated loops of small bowel but no bowel obstruction -Fevers have resolved # Periumbilical and suprapubic abdominal pain, present on admission, active -May be viral enteritis, unclear at this point. No recent sick contacts - Continue IV normal saline at 100 mL per hour # Transaminitis, present on admission, active - AST 115, ALT 66 - Likely secondary to chronic liver cirrhosis and cholelithiasis - We will continue home medication ursodiol # Lactic acidosis, present on admission, active - Lactic acidosis resolved #Thrombocytopenia, present remission, active - Secondary to chronic liver cirrhosis Chronic problems Cirrhotic liver disease. - Patient was diagnosed with liver cirrhosis at age 2.5 years old - Patient has old surgical scar on the abdomen from biopsy at age 1 - Patient also has history of alcohol abuse in life however has no longer drinks alcohol. Cholelithiasis. Esophageal varices. -Patient has appointment with Dr. Frances at [facility] for upper endoscopy on October 01 GI Bleed. Patient does not take any pain medications. CODE STATUS: Full code DVT prophylaxis: Heparin products contraindicated with thrombocytopenia Disposition: Patient independent with ADLs, likely home at discharge pending hospital course. VTE Prophylaxis: Sub-Q Enoxaparin Resuscitation Status: CPR: Attempt Resuscitation Amando Callahan DO Sep 07, 2016 18:27
--- NOTE | 2016-09-07 22:10 | NUR ---
TRANSFER Pt transferred to [id number] with all belongings via wheelchair, report given to Kylie De Anda.
[2016-09-08] VITALS (9 sets, daily range): BP systolic 104–144; BP diastolic 50–72; PULSE 80–98; RESP 16–18; O2SAT 96–98
[2016-09-08] MEDS: CeFAZolin Inj 1 GM in IV Premix 1 EACH IV SCH ×3 (00:19→16:21)
[2016-09-08 05:57] LABS: Mean Corpuscular Hemoglobin 33.1 pg (27.0-35.0); Mean Corpuscular Volume 94.8 fL (81-100); Platelet Count 48 bil/L (150-400)
[2016-09-08 05:58] LABS: BASOPHILS % (AUTO) 0 % (0-3); EOSINOPHILS % (AUTO) 7 % (0-5); MONOCYTES % (AUTO) 8 % (4-12); NEUTROPHILS % (AUTO) 50 % (40-74)
--- NOTE | 2016-09-08 06:07 | NUR ---
NOC PT received from [facility] around 2129. Pt is receiving IV abx for RLE cellulitis. RLE is swollen with a pink area noted. PT reports it is improved. HE keeps his leg elevated on pillows. Denies any pain. Afebrile. ORA. PT does have some ascites noted r/t his cirrhosis. Mentation is clear. Up ad kiko to BR. Will CTM.
--- NOTE | 2016-09-08 15:44 | NUR ---
Ambulation / Swelling Pt up and ambulating halls with family. Ambulates independently with steady gait. A&OX4 Bilateral swelling continues but per pt has decreased. Right leg much worse than left. Right leg is also hot to touch and painful to touch per pt. Pt denies pain unless the right leg is touched. Declines any pain medication. Care continues
--- NOTE | 2016-09-08 16:03 | PCM.PNMED ---
Subjective Date of Service Sep 08, 2016 Subjective Patient is feeling better, mildly tender over the left LE, still warm to touch. Had an echo this am, no result is available yet. He is on day #4 abx. Switched to Cefazolin overnight from vanc. Sensitive to both. He has had a PICC line for bacteremia when he was 45. He understands that he might need one again. No other concerns. Exam Vital Signs Vital Sign - Last Date Time Temp Pulse Resp B/P Pulse Ox O2 Delivery O2 Flow Rate FiO2 09/08/16 06:10 36.6 80 16 144/70 97 Room Air 09/05/16 08:41 4.00 Intake and Output 09/07/16 09/07/16 09/08/16 Cumulative From/Thru 15:00 23:00 07:00 09/04/16 22:00 - 09/08/16 06:10 Intake Total 1300 ml 200 ml 01879 ml Output Total 2025 ml 1300 ml 5975 ml Balance -725 ml -1100 ml 4813 ml Intake Oral 1100 ml 200 ml 4970 ml IV Total 200 ml 5818 ml Output Urine Total 2025 ml 1300 ml 5975 ml # Voids 4 # Bowel Movements 1 3 Exam General NAD, ambulating gin the [address] HEENT: NCAT Heart: RRR, no s3/s4 murmurs Lungs: CTA, no crackles or wheezes Abd: Midly distended, normal bowel sounds Legs: Hemosiderin deposits over lower leg, Right leg is more warmer. Vasc: Palpable dorsalis pedis in both legs positive for 1+ pitting edema. MSKJ: Strength is equal and symmetric. IVs and Medications IV Fluids None. Medications Reviewed: Medications were reviewed in detail Lab and Diagnostics Result Diagram: 09/08/16 0500 09/08/16 0525 Microbiology Microbiology 09/04/16 Blood Culture - Final, Complete Coag Negative Staphylococcus 09/06/16 MRSA (PCR) - Final, Complete 09/04/16 Urine Culture - Final, Complete No growth (<1,000 organisms/mL) X-Rays, CTs and MRIs [facility] Diagnostic [place] [address] Patient Name: PAULINE PAINTER MR#: [id number] Location: [facility] Ordering Phys: Amando Callahan DO Date of Service: 09/07/16 0852 PROCEDURE: US EXTREMITY SONOGRAM LIMITED ([id number]) INDICATIONS: r/u abscess TECHNIQUE: Real-time scanning was performed of the anterior aspect of the right lower leg, with image documentation. COMPARISON: None. FINDINGS: There is a prominent amount of edema in the subcutaneous tissues. No loculated fluid collection is seen. There is increased vascularity somewhat generalized, not around any particular focus or fluid collection or phlegmonous area. IMPRESSION: Prominent amount of edema and no evidence for abscess. Dictated by: Calderon Merrill M.D. on 09/07/2016 at 14:53 Approved by: Calderon Merrill M.D. on 09/07/2016 at 14:55 [facility] Diagnostic Imaging Department [place], [place] [id number] Patient Name: PAULINE PAINTER MR#: [id number] Location: [facility] Ordering Phys: Butch Alejandra DO Date of Service: 09/05/16316 PROCEDURE: CT ABDOMEN AND PELVIS WITH CONTRAST ([id number]) INDICATIONS: Abdominal pain TECHNIQUE: After the administration of oral and intravenous contrast, 5 mm thick sections acquired from the diaphragms to the symphysis. 5 mm thick coronal and sagittal reformats were performed. For radiation dose reduction, the following was used : automated exposure control, adjustment of mA and/or kV according to patient size. COMPARISON: [facility], CT, CT ABD PELVIS W CON, 06/04/2015, 2:28. FINDINGS: Image quality: Excellent. ABDOMEN: Lung bases: Minimal left pleural effusion and dependent changes. The previously identified 5 mm left lower lobe nodule is less prominent on today's exam. Solid organs: Liver is shrunken and nodular.. There are multiple punctate foci of low attenuation, unchanged. Gallbladder demonstrates numerous dependent calcifications without wall thickening. No interval change. The spleen is enlarged. Biliary system is non-dilated. Pancreas enhances normally. No adrenal nodules. Kidneys are normal in size and enhancement, without hydronephrosis. Peritoneum and bowel: Stomach, small bowel, and colon loops are nonobstructed. There is a mildly thickened appearance of scattered small bowel loops, also incompletely distended. No free fluid or air. There is distal esophageal thickening with hiatal hernia. Nodes and vessels: No retroperitoneal or mesenteric adenopathy. Aorta and inferior vena cava are normal in caliber. Prominent splenic and gastroesophageal varices are present. There are numerous varices identified within the abdomen and pelvis particularly in the right bibi-abdomen. 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 There is recanalization of the umbilical vein. Splenorenal shunt is present. Miscellaneous: No ventral hernias. PELVIS: Genitourinary: Bladder wall thickness is normal. Miscellaneous: No inguinal hernias or adenopathy. Bones: No suspicious bony lesions. No vertebral body compression fractures. IMPRESSION: 1. Trace left pleural effusion and dependent changes. 2. Cirrhotic appearing liver with splenomegaly and extensive collateral system as well as unchanged partial portal vein thrombosis as above. 3. Mild, incomplete distention of small bowel loops with appearance of thickening. This could be related to incomplete distention versus enteritis and clinical correlation is recommended. Dictated by: Krystle Ambriz M.D. on 09/05/2016 at 9:03 Approved by: Krystle Ambriz M.D. on 09/05/2016 at 9:50 Assessment & Plan #Bacteremia with MSSA -He was started on vancomycin which has been discontinued and Ancef has been started -Repeat blood cultures in the morning -Unknown etiology, possible right lower extremity cellulitis -CT positive for possible enteritis with dilated loops of small bowel but no bowel obstruction -Fevers have resolved -- On Cefazolin IV, day #4 of abx -- Consult Dr. Hastings for IV abx/PICC for d/c tomorrow am. A consult order is already put in. . Pt needs 3 days of clean cx, repeat blood cx was just drawn this am. # Periumbilical and suprapubic abdominal pain, present on admission, active -May be viral enteritis, unclear at this point. No recent sick contacts # Transaminitis, present on admission, active - AST 115, ALT 66 - Likely secondary to chronic liver cirrhosis and cholelithiasis - We will continue home medication ursodiol # Lactic acidosis, present on admission, active - Lactic acidosis resolved #Thrombocytopenia, present remission, active - Secondary to chronic liver cirrhosis Chronic problems Cirrhotic liver disease. - Patient was diagnosed with liver cirrhosis at age 2.5 years old - Patient has old surgical scar on the abdomen from biopsy at age 1 - Patient also has history of alcohol abuse in life however has no longer drinks alcohol. Cholelithiasis. Esophageal varices. -Patient has appointment with Dr. Frances at [facility] for upper endoscopy on October 01 GI Bleed. Patient does not take any pain medications. CODE STATUS: Full code DVT prophylaxis: Heparin products contraindicated with thrombocytopenia, patient was on enoxaparin which is also contraindicated for platlet count<50. Stopped it today Disposition: Patient independent with ADLs, likely home at discharge pending ID consult on iv abx course. VTE Prophylaxis: Sub-Q Enoxaparin Resuscitation Status: CPR: Attempt Resuscitation Shannan Hayden DO Sep 08, 2016 07:56
[2016-09-09] VITALS (7 sets, daily range): BP systolic 104–124; BP diastolic 63–74; PULSE 67–90; RESP 18; O2SAT 96–98
[2016-09-09] MEDS: CeFAZolin Inj 1 GM in IV Premix 1 EACH IV SCH ×3 (00:20→16:33)
--- NOTE | 2016-09-09 05:18 | NUR ---
NOC Afebrile today and through night, pt denies significant pain. Right leg elevated, pt reports continued improvement. Independent with care, hourly rounding ongoing.
--- NOTE | 2016-09-09 05:59 | DRSVH ---
[facility] [address] [place] [address] Echocardiogram Report Name: PAULINE PAINTER PStudy Date: 01/2017 Height: 74 in Hospital Exam Location: [facility] Weight: 231 lb Gender: Male BSA: 2.3 m2 : 1965 Age: 51 yrs BP: 144/70 mmHg Reason For Study: BACTEREMIA Ordering Physician: Performed By: [facility] Interpretation Summary 1) Mild concentric left ventricular hypertrophy with normal size, normal wall motion, and normal systolic function (EF 60-65%). 2) Normal right ventricular size and function. 3) No signifcant valvular abnormalities. 4) Elevated right sied filling pressures based on IVC assessment. 5) Bilateral pleural effusion present, left worse than right. 6) No prior Echo available for comparison. No vegetations present on this study but consider RENY if there is clinical suspicion for endocarditis. Procedure: A two-dimensional transthoracic echocardiogram with color flow and Doppler was performed. The study quality was technically adequate. There is no prior echocardiogram noted for this patient. The patient was in normal sinus rhythm during the exam. Left Ventricle: There is mild concentric left ventricular hypertrophy. The left ventricle is normal in size. The ejection fraction is estimated to be 60 -65%. Left ventricular systolic function is normal. There are no focal wall motion abnormalities. Assessment of diastolic parameters indicates normal left ventricular diastolic function and normal filling pressures. Right Ventricle: The right ventricle is normal in size and function. Atria: The left atrium is moderately dilated. Right atrial size is normal. There is no Doppler evidence for an interatrial shunt. Mitral Valve: The mitral valve is normal in structure and function. There is no vegetation seen on the mitral valve. There is trace mitral regurgitation. Aortic Valve: The aortic valve is normal in structure and function. There is no aortic valvular vegetation. There is no aortic valve stenosis. No aortic regurgitation is present. Tricuspid Valve: The tricuspid valve is normal in structure and function. There is no tricuspid valve vegetation. There is a trace or physiologic amount of tricuspid regurgitation. The right ventricular systolic pressure is estimated at 48 mmHg assuming a right atrial pressure of 15 mm Hg. Pulmonic Valve: The pulmonic valve is normal in structure and function. There is no vegetation on the pulmonic valve. There is no pulmonic valvular regurgitation. Great Vessels: The aortic root is normal size. The ascending aorta is normal in size. The aortic arch could not be visualized. The pulmonary artery is normal size. The IVC is dilated (diameter is greater than 2.1 cm) and it collapses less than 50% with a sniff. This suggests a high right atrial pressure of 15 mm Hg. Pericardium/ Pleura There is no pericardial effusion. There is a moderately large left-sided pleural effusion. There is a trivial right-sided pleural effusion. MMode/2D Measurements & Calculations LVIDd: 5.3 cm RA long axis LVOT diam LVIDs: 3.1 cm LA A2 area: 25.7 cm FS: 40.7 % LA A4 area: 25.7 cm RA area Ao root diam EPSS: 0.23 cm LA length (vol): 5.8 cm IVSd: 1.2 cm LA vol: 97.3 ml : 18.6 cm Aortic Jxn LVPWd: 1.2 cm LA vol index RA vol: 54.7 ml RA asc Aorta : 23.7 mm2 Diam: 3.0 cm IVC diam: 2.6 cm LV sultana. diameter/BSA LV sys. diameter/BSA RVD1 (basal) RVD2 (mid) (cm/m^2): 2.3 (cm/m^2): 1.4 : 3.0 cm Doppler Measurements & Calculations Ao V2 max MV E max maurice MV E/A: 1.6 TR max maurice : 223.5 cm/sec : 128.9 cm/sec Med Peak E' Maurice : 287.4 cm/sec Ao max PG MV A max maurice TR max PG : 20.0 mmHg : 81.3 cm/sec E/E' med: 13.4 : 33.0 mmHg Ao mean PG MV P1/2t: 75.0 msec Lat Peak E' Maurice PA V2 max : 121.0 cm/sec LVOT Max Maurice E/E' lat: 11.7 PA mean PG : 151.4 cm/sec E/e' average: 12.5 Pulm A Revs Dur PA Accel Time YOMI(I,D): 2.3 cm : 0.16 sec sev ratio MV A dur: 0.12 sec MV dec time MV P1/2t max maurice Ao V2 mean LV V1 max PG : 0.26 sec : 142.1 cm/sec MVA(P1/2t): 2.9 cm2 Ao V2 VTI: 49.6 cm LV V1 VTI YOMI(V,D): 2.4 cm2 : 32.9 cm PA V2 mean YOMI indexed to BSA Pulm A Revs Dur - MV A : 86.3 cm/sec (cm^2/m^2): 1.0 Dur: -0.04 msec Reading Physician:01:00 PM
[2016-09-09] MEDS: Potassium Chloride 20 mEq SR Tablet PO SCH (12:05)
--- NOTE | 2016-09-09 19:32 | NUR ---
Day shift Pt afebrile, no complains of increased pain/discomfrt. Pt independent in room, steady gait. Bilateral lower extremity edema, R greater than L, R leg elevated on pillow. Call light with in reach, will continue to monitor.
--- NOTE | 2016-09-09 20:30 | CONS ---
[address] [address] CONSULTATION REPORT PATIENT: PAULINE PAINTER : 1965 MR#: [id number] ADMIT: 09/05/2016 JOB ID: [id number] DATE OF SERVICE: 09/09/2016 REASON FOR CONSULTATION: High-grade Staph warneri bacteremia in a cirrhotic patient. I thank Dr. Hayden for this timely consult. HISTORY OF PRESENT ILLNESS: The patient is a 51-year-old gentleman who reports that he was diagnosed with cirrhosis as a 2-1/2-year-old at the [facility] in [place], [place]. Since then, he has been followed by a succession of hepatologists and is now followed by the hepatology group at [facility]. He reports that despite this amazing 50-year history of unexplained cirrhosis he has been able to enjoy a relatively normal life including being productive in terms of his work and family life. He is known to have varices as result of this and it says he is occasionally confused which might suggest history of hepatic encephalopathy but he has never had ascites apparently and has had relatively few serious complications of this longstanding cirrhosis. The patient was in his usual state of well compensated health until just before his admission late on September 04. He reports that he developed the sudden onset of high fevers, which he measured to 104 at home in association with chills, headaches, malaise, myalgias, and an erythematous rash around his right lower extremity. He did have some nausea, but no pulmonary symptoms. He reports that since admission and the institution of broad-spectrum antibiotics, he has dramatically improved and now is actually free of fevers chills, sweats, or any significant cellulitis symptoms and is hoping to be discharged home in the very near future. ID consultation is requested regarding appropriate management given that the patient has high-grade Staph warneri bacteremia. Of critical importance the patient states he has no indwelling devices, specifically no [employer] shunts, no prosthetic joints, no artificial heart valves, no Pompey shunt or any other prosthetic material. He tells us he had a bacteremia seven years ago at a hospital in [place], [place], and we are attempting to get the records from that. As a result of that, he required a PICC line at home for extended course of antibiotics but he is not aware what the organism was, where the site of the infection was, or what antibiotics were used. PAST MEDICAL HISTORY: 1. Cirrhosis since age 1[birth year]06[birth year]. 2. History of cholelithiasis. 3. Bilateral inguinal hernia repairs. 4. Esophageal varices secondary to his underlying cirrhosis. 5. History of left lower extremity tibial injury in the distant past. SOCIAL HISTORY: The patient is an ex-drinker and lifelong nonsmoker. 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 FAMILY HISTORY: Negative for tuberculosis in first and second degree relatives. REVIEW OF SYSTEMS: The patient denies any significant headache. He has no visual change, sores in the mouth, odynophagia, dysphagia, cough, shortness of breath, chest pain, nausea or vomiting. He did have some nausea earlier in his stay but that is resolved. He has had no dysuria, urgency, or frequency. No diarrhea. No swelling of the joints, and he did have of course the erythema and tenderness below the right knee which has already resolved. Remainder of the review of systems is negative. PHYSICAL EXAMINATION: Reveals an afebrile gentleman. He was febrile to 39.1 on admission. He stayed febrile for approximately 36 hours after admission and has been afebrile ever since. Current temp 36.8, pulse 86, respiratory rate 18, blood pressure 119/67, and he is saturating well on room air. Examination of the mental status reveals it to be completely clear. Eyes without scleral icterus. Head without temporal wasting. Oral cavity without thrush or pharyngitis. Neck without adenopathy and supple. His lungs are clear. Cardiac tones. Regular rate and rhythm without murmur. Abdomen soft, without ascites or appreciable hepatosplenomegaly, but he does have a have a palpable liver which extends below the right costal margin. No ascites was noted. No Souza is present. No suprapubic tenderness. No swelling of the joints. The patient has venous stasis changes bilaterally below the knees. The lower extremities below the knees appear uninfected though the patient notes the right lower extremity below the knee was warm and tender when he was admitted four days ago. At this point, is minimally tender to very deep palpation but there is no erythema, warmth, bullae formation or any other notable abnormality. The patient is neurologically intact with good strength and sensation and no other significant abnormalities are noted. The patient has no known allergies. LABORATORIES: Include white count of 5800 on admission, now 2600. Platelet count 48,000. He has developed 7% eosinophils since admission. His creatinine is 0.64. Lactic acid 1.4. LFTs notable for total bilirubin 3.7, AST 133, ALT 87, alk phos normal at 64. Albumin 2.8. Procalcitonin was 0.24 on admission and has not been repeated. Urinalysis without white cells. Vancomycin trough is 5.7 two days ago which is grossly inadequate. On September 04, when he was in the ED, he had two sets of blood cultures and all four bottles grew Staph warneri. This Staph warneri proves to be oxacillin-susceptible with an ELIJAH of less than 0.25 so extraordinarily susceptible. Followup blood cultures done yesterday are negative at this point. A MRSA screen in the nares was negative. Note, that I personally called the micro lab to confirm that these are in fact coag-negative staph, and are specifically Staph warneri and not Staph lugdunensis or Staph aureus. IMAGING: Includes a chest radiograph which shows mild interstitial opacity in the lower lungs. An abdominal CT was done which shows trace left pleural effusion. A cirrhotic-appearing liver with splenomegaly and portal vein thrombosis apparently has been previously noted and an ultrasound of the abdomen shows no evidence for abdominal abscess. IMPRESSION: This is a strange case of a gentleman with cirrhosis since he was a basically a toddler which currently has been biopsy confirmed and he has been followed for many years by different hepatologists, currently Dr. Ley at the [facility] for this cirrhosis with varices. Despite this, patient is able to carry on a pretty normal life and is usually free of significant complications of his cirrhosis. He presented with what sounds like a right lower extremity cellulitis and has improved dramatically with vancomycin and Zosyn. Interestingly all of his blood cultures grew Staph warneri which is almost never a pathogen unless a person has indwelling hardware such as a heart valve or prosthetic joint. I am a little uncertain in terms of what to do next with his antibiotics but in view of the fact he looks dramatically better, I think our best approach would be to simply finish a two-week course of intravenous antibiotics directed at the Staph warneri which is very much oxacillin and cephalosporin susceptible. RECOMMENDATIONS: 1. Ceftriaxone 2 g once a day IV through September 19. 2. Weekly labs will be ordered. 3. The patient will follow up with me in my clinic on the which could be just prior to the conclusion of these antibiotics. 4. This case discussed with Dr. Osman, who is the current attending on the case. 5. Will attempt to get the records from the hospital in [place], [place] and also to speak briefly to Dr. Ley at [facility]. Thank you very much for this complex consultation.
--- NOTE | 2016-09-09 23:07 | PCM.PNMED ---
Subjective Date of Service Sep 09, 2016 Subjective Patient has no new complaints and is feeling better. Exam Vital Signs Vital Sign - Last Date Time Temp Pulse Resp B/P Pulse Ox O2 Delivery O2 Flow Rate FiO2 09/09/16 22:17 36.6 90 18 124/74 96 Room Air 09/05/16 08:41 4.00 Intake and Output 09/08/16 09/08/16 09/09/16 Cumulative From/Thru 15:00 23:00 07:00 09/04/16 22:00 - 09/09/16 06:37 Intake Total 1150 ml 970 ml 86814 ml Output Total 2425 ml 1750 ml 99632 ml Balance -1275 ml -780 ml 2758 ml Intake Oral 1000 ml 900 ml 6870 ml IV Total 150 ml 70 ml 6038 ml Output Urine Total 2425 ml 1750 ml 51202 ml # Voids 4 # Bowel Movements 1 0 4 Exam General: Patient is lying supine in bed in no apparent distress. HEENT: Head is atraumatic and normocephalic. Eyes: Pupils are equally round and reactive to light and accommodation. Extraocular muscles are intact. Sclera are white, anicteric. Subconjunctival mucosa is pink. Ears and nose are unremarkable. Oropharynx: There is no mucosal lesions, there is no thrush, there is no pharyngitis. Neck: Is supple, there are no nodes, or masses or tenderness. Chest: Is clear to auscultation and percussion. There are no rales, rhonchi, wheezes or rubs. There are slightly diminished breath sounds at the bases. Heart: Rate, rhythm is regular. There is no murmur, rub or gallop. Abdomen: Good bowel sounds are present. Abdomen is soft, nontender, no organomegaly or masses were appreciated. Extremities: Are symmetrical and well perfused. There is 2+ bilateral edema, there is still some cellulitis of the right lower extremity which appears markedly improved and the patient agrees to this. There is no rash. Neurologic: There are no focal neurological deficits. Cranial nerves II through XII are intact. There are no sensory or motor deficits. Psychiatric: Patients mood is calm and shows no sign of agitation. Genital: Deferred Rectal: Deferred Lab and Diagnostics Result Diagram: 09/08/16 0500 09/08/16 0525 Microbiology Name: PAULINE PAINTER Age/Sex: 51/M Attend Dr: Juan Qureshi MD Acct: [id number] Unit: [id number] Status: ADM IN Location: [facility] 2027-06 Re09/05/16 Disch: Specimen: [id number] Collected: 09/04/16 Status: COMP Req#: [id number] Received: 09/04/16 Source: BLOOD Sp Desc : AA Subm Dr: Raghav Wang MD Ordered: Comments: Collected by Nurse/Unit? Y/N N Procedure Result Verified Site Microbiology ELIJAH CULTURE BLOOD Final 09/07/16-0759 Organism 1 COAG NEGATIVE STAPHYLOCOCCUS GRAM STAIN RESULT GRAM POSITIVE COCCI ?STAPH BC BOTTLE Isolated from Aerobic Bottle of Set Drawn DATE CALLED: 09/05/16 TIME CALLED: [id number] CALLED BY: PAUL FLOOR/DOCTOR: CARLEEN/CHACHA Kaur BC READ BACK YES TYPE OF DRAW PERIPHERAL DRAW TIME OF POSITIVITY 2200 GRAM STAIN RESULT GRAM POSITIVE COCCI ?STAPH BC BOTTLE2 Isolated from Anaerobic Bottle of Set Drawn DATE CALLED: 09/06/16 TIME CALLED: 1221 CALLED BY: RIRI FLOOR/DOCTOR: [facility]/MARIO OWENS READ BACK Y TYPE OF DRAW PERIPHERAL DRAW TIME OF POSITIVITY 1119 COAG NEGATIVE STAPHYLOCOCCUS SPESICE WARNERI ISOLATED FROM FOUR OF FOUR BOTTLES COLLECTED 09/04 For sensitivities see other set collected same day 09/04/16 Urine Culture - Final, Complete No growth (<1,000 organisms/mL) X-Rays, CTs and MRIs PROCEDURE: US EXTREMITY SONOGRAM LIMITED ([id number]) INDICATIONS: r/u abscess TECHNIQUE: Real-time scanning was performed of the anterior aspect of the right lower leg, with image documentation. COMPARISON: None. FINDINGS: There is a prominent amount of edema in the subcutaneous tissues. No loculated fluid collection is seen. There is increased vascularity somewhat generalized, not around any particular focus or fluid collection or phlegmonous area. IMPRESSION: Prominent amount of edema and no evidence for abscess. Dictated by: Calderon Merrill M.D. on 09/07/2016 at 14:53 Approved by: Calderon Merrill M.D. on 09/07/2016 at 14:55 [facility] [place] [address] [facility] [place] [address] 360Patient Name: PAULINE PIANTER MR#: [id number] Location: [facility] Ordering Phys: Butch Alejandra DO Date of Service: 09/05/16 0317 PROCEDURE: CT ABDOMEN AND PELVIS WITH CONTRAST ([id number]) INDICATIONS: Abdominal pain TECHNIQUE: After the administration of oral and intravenous contrast, 5 mm thick sections acquired from the diaphragms to the symphysis. 5 mm thick coronal and sagittal reformats were performed. For radiation dose reduction, the following was used : automated exposure control, adjustment of mA and/or kV according to patient size. COMPARISON: [facility], CT, CT ABD PELVIS W CON, 06/04/2015, 2:28. FINDINGS: Image quality: Excellent. ABDOMEN: Lung bases: Minimal left pleural effusion and dependent changes. The previously identified 5 mm left lower lobe nodule is less prominent on today's exam. Solid organs: Liver is shrunken and nodular.. There are multiple punctate foci of low attenuation, unchanged. Gallbladder demonstrates numerous dependent calcifications without wall thickening. No interval change. The spleen is enlarged. Biliary system is non-dilated. Pancreas enhances normally. No adrenal nodules. Kidneys are normal in size and enhancement, without hydronephrosis. Peritoneum and bowel: Stomach, small bowel, and colon loops are nonobstructed. There is a mildly thickened appearance of scattered small bowel loops, also incompletely distended. No free fluid or air. There is distal esophageal thickening with hiatal hernia. Nodes and vessels: No retroperitoneal or mesenteric adenopathy. Aorta and inferior vena cava are normal in caliber. Prominent splenic and gastroesophageal varices are present. There are numerous varices identified within the abdomen and pelvis particularly in the right bibi-abdomen. 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 There is recanalization of the umbilical vein. Splenorenal shunt is present. Miscellaneous: No ventral hernias. PELVIS: Genitourinary: Bladder wall thickness is normal. Miscellaneous: No inguinal hernias or adenopathy. Bones: No suspicious bony lesions. No vertebral body compression fractures. IMPRESSION: 1. Trace left pleural effusion and dependent changes. 2. Cirrhotic appearing liver with splenomegaly and extensive collateral system as well as unchanged partial portal vein thrombosis as above. 3. Mild, incomplete distention of small bowel loops with appearance of thickening. This could be related to incomplete distention versus enteritis and clinical correlation is recommended. Dictated by: Krystle Ambriz M.D. on 09/05/2016 at 9:03 Approved by: Krystle Ambriz M.D. on 09/05/2016 at 9:50 Cardiac Echo Impressions Echocardiogram Report Name: PAULINE PAINTER PStudy Date: 01/2017 Height: 74 in Hospital Exam Location: [facility] Weight: 231 lb Gender: Male BSA: 2.3 m2 : 1965 Age: 51 yrs BP: 144/70 mmHg Reason For Study: BACTEREMIA Ordering Physician: Performed By: Melinda [facility] Interpretation Summary 1) Mild concentric left ventricular hypertrophy with normal size, normal wall motion, and normal systolic function (EF 60-65%). 2) Normal right ventricular size and function. 3) No signifcant valvular abnormalities. 4) Elevated right sied filling pressures based on IVC assessment. 5) Bilateral pleural effusion present, left worse than right. 6) No prior Echo available for comparison. No vegetations present on this study but consider RENY if there is clinical suspicion for endocarditis. Assessment & Plan Pauline is a pleasant 51-year-old male with past medical history of liver cirrhosis diagnosed age 2.5 following a liver biopsy, history of cholelithiasis , and is not a surgical candidate due to his liver cirrhosis, history of esophageal varices, who presented to the ED for acute onset fever of 102.9 shortly after having eaten his dinner, with associated chills, rigors, nausea, and mild wheeze and headache onset 1715 on 09/04/2016. Patient states he felt ill suddenly, took one single dose of Motrin and 45 minutes later his temperature was 104.0 prompting his visit to the emergency department. Of note patient states he had very little to drink today and was only able to urinate a small amount of dark-colored urine. Patient denies chest pain, asthma, COPD, diaphoresis, cough, vomiting, diarrhea, constipation, abdominal pain, dysuria. Patient's branch lead is Dr. Estela mauricio at [facility]. Patient states he has a scheduled appointment on October 01 for endoscopy for 2 evaluate his esophageal varices which takes place every 2 years. Patient was admitted to the hospital for fever of unknown origin. #Bacteremia with Coagulase-negative staph. 4 out of 4 blood culture bottles were positive. -He was started on vancomycin which has been discontinued and Ancef has been started -Repeat blood cultures are negative -Unknown etiology, possible right lower extremity cellulitis -CT positive for possible enteritis with dilated loops of small bowel but no bowel obstruction -Fevers have resolved -- On Cefazolin IV, day #5 of abx -- Dr. Hastings was consulted for an infectious disease opinion and his impression and recommendations are as follows: "IMPRESSION: This is a strange case of a gentleman with cirrhosis since he was a basically a toddler which currently has been biopsy confirmed and he has been followed for many years by different hepatologists, currently Dr. Ley at the [facility] for this cirrhosis with varices. Despite this, patient is able to carry on a pretty normal life and is usually free of significant complications of his cirrhosis. He presented with what sounds like a right lower extremity cellulitis and has improved dramatically with vancomycin and Zosyn. Interestingly all of his blood cultures grew Staph warneri which is almost never a pathogen unless a person has indwelling hardware such as a heart valve or prosthetic joint. I am a little uncertain in terms of what to do next with his antibiotics but in view of the fact he looks dramatically better, I think our best approach would be to simply finish a two-week course of intravenous antibiotics directed at the Staph warneri which is very much oxacillin and cephalosporin susceptible. RECOMMENDATIONS: 1. Ceftriaxone 2 g once a day IV through September 19. 2. Weekly labs will be ordered. 3. The patient will follow up with me in my clinic on the which could be just prior to the conclusion of these antibiotics. 4. This case discussed with Dr. Osman, who is the current attending on the case. 5. Will attempt to get the records from the hospital in [place], [place] and also to speak briefly to Dr. Ley at [facility]. Thank you very much for this complex consultation." I discussed the case with Dr. Hastings and will follow his recommendations. # Periumbilical and suprapubic abdominal pain, present on admission, active -May be viral enteritis, unclear at this point. No recent sick contacts # Transaminitis, present on admission, active - AST 115, ALT 66 - Likely secondary to chronic liver cirrhosis and cholelithiasis - We will continue home medication ursodiol # Lactic acidosis, present on admission, active - Lactic acidosis resolved #Thrombocytopenia, present remission, active - Secondary to chronic liver cirrhosis Chronic problems Cirrhotic liver disease. - Patient was diagnosed with liver cirrhosis at age 2.5 years old - Patient has old surgical scar on the abdomen from biopsy at age 1 - Patient also has history of alcohol abuse in life however has no longer drinks alcohol. Cholelithiasis. Esophageal varices. -Patient has appointment with Dr. Frances at [facility] for upper endoscopy on October 01 GI Bleed. Patient does not take any pain medications. CODE STATUS: Full code DVT prophylaxis: Heparin products contraindicated with thrombocytopenia, patient was on enoxaparin which is also contraindicated for platlet count<50. Stopped it today Disposition: Patient is likely to be discharged in the next 24-48 hours. Pain Evaluation: Adequate Pain Control VTE Prophylaxis: Sub-Q Enoxaparin VTE Mechanical Devices: Intermittant Pneumatic CD Resuscitation Status: CPR: Attempt Resuscitation Jaden Osman MD Sep 09, 2016 23:07
[2016-09-10] MEDS: CeFAZolin Inj 1 GM in IV Premix 1 EACH IV SCH ×2 (00:27→09:05)
--- NOTE | 2016-09-10 01:39 | NUR ---
Plan of care Pt aware that he will most likely discharge. He understands that he will be going to [facility] for outpatient antibiotic treatment. No other questions at this time
[2016-09-10 02:40] VITALS: BP 120/67; PULSE 84; RESP 16; O2SAT 95
[2016-09-10 04:32] VITALS: PULSE 82
[2016-09-10 05:58] VITALS: BP 124/76; PULSE 85; RESP 16; O2SAT 97
[2016-09-10 06:26] LABS: BASOPHILS % (AUTO) 0.7 % (0-3); EOSINOPHILS % (AUTO) 6.8 % (0-5); MONOCYTES % (AUTO) 7.8 % (4-12); Mean Corpuscular Hemoglobin 33.3 pg (27.0-35.0); Mean Corpuscular Volume 95.4 fL (81-100); NEUTROPHILS % (AUTO) 57.8 % (40-74); Platelet Count 58 bil/L (150-400)
[2016-09-10 06:51] LABS: Magnesium 1.8 mg/dL (1.6-2.6)
[2016-09-10] MEDS ORDERED: Magnesium Sulf 2 Gm/50mL Water 2 GM in IV Premix 1 EACH IV ONE (09:00)
[2016-09-10] MEDS: Potassium Chloride 20 mEq SR Tablet PO SCH (09:07)
[2016-09-10 10:07] VITALS: BP 121/73; PULSE 84; RESP 16; O2SAT 97
[2016-09-10 11:24] VITALS: PULSE 82
--- NOTE | 2016-09-10 12:06 | NUR ---
IV ABX: Called and spoke with Judith in [facility] outpatient and she received orders for patient, has been over to see him and spoke with RN. She said no PICC line is needed because IV ABX will be completed next week. Updated [employer]IVER
[2016-09-10] MEDS ORDERED: cefTRIAXone Inj 2,000 MG in Dextrose 5% Minibag Plus 50 ML IV ONE (14:55)
--- NOTE | 2016-09-10 16:51 | NUR ---
Social Work Note: Discharge Data: per MD pt is medically cleared for discharge. Pt to received outpatient IV Antibiotics at [facility]. UR Specialist confirmed with [facility] that they received referral. Pt to discharge home via . No other discharge needs identified at this time. Assessment: Pt who is independent at baseline. Plan: discharge home via POV. Pt to receive IV antibiotics at [facility]. No other discharge needs identified at this time. SYDNEY Urban
--- NOTE | 2016-09-10 16:53 | PROG NOTE ---
[address] [address] PROGRESS NOTE PATIENT: PAULINE PAINTER : 1965 MR#: [id number] ADMIT: 09/05/2016 JOB ID: [id number] DATE: 09/10/2016 REASON FOR FOLLOWUP: Staph warneri bacteremia with cellulitis in a patient with cirrhosis. INTERVAL HISTORY: Overnight, the patient has felt much better. No additional fevers, chills or sweats. No cough, shortness of breath, nausea, vomiting. He notes that his cellulitis present on his right lower extremity below the knee has essentially resolved at this point, though he does have some minimal edema when his legs are dependent. PHYSICAL EXAMINATION: Reveals an afebrile gentleman, temp 36.6, pulse 82, respiratory rate 16, blood pressure 121/73, saturating well on room air. He is in no acute distress. Mental status is normal. Oral cavity negative. Lungs clear. Cardiac tones without new murmur. Abdomen without gross ascites. His right lower extremity cellulitis has resolved. He still has venous stasis changes and minimal edema below the knees bilaterally. LABORATORIES: Include white count 4200 today which has rebounded smartly from 2600 yesterday; 7% eosinophils are noted. Creatinine 0.61. Bilirubin 1.5. Otherwise ALT and AST both around 40. Labs include the Staph warneri which grew in multiple blood cultures on admission, and has not been seen in the followup blood cultures. Urine culture was negative. MRSA screen was negative. IMPRESSION: This patient is doing extremely well. We discussed this case with Dr. Osman in person this afternoon and certainly feel that it is reasonable for him to be discharged at any time with the plan to finish ceftriaxone. Left unanswered is the question why the patient has a basically nonpathogenic organism, Staphylococcus warneri, present in four of four blood cultures. This organism really never causes cellulitis, so it is unclear to me the exact juxtaposition of events that led to this cellulitis and the bacteremia in this patient. He has no indwelling devices or hardware so there is no reason to think he has any prosthetic infection. RECOMMENDATIONS: 1. Ceftriaxone today 2 g. Ceftriaxone daily in the [facility] through the . 2. The patient will follow up with me on January 18 in clinic. 3. This patient discussed in detail with Dr. Osman. 4. I am going to sign off at this point.
--- NOTE | 2016-09-10 16:57 | PCM.DIMED ---
Discharge Instructions Date of Service Sep 10, 2016 Dates of Hospitalization Sep 05, 2016 at 01:13 Discharge Diagnosis Discharge Diagnosis Cellulitis of the Right Lower Extremity with Staph warneri Bacteremia Diet Heart Healthy Activity Other (Patient may return to usual activities gradually as tolerated. When not ambulatory patient is to keep legs elevated.) Call your provider Fever or Chills, Shortness of breath, Bleeding, Chest pain, Vomitting, Excessive diarrhea, Weakness (unilateral) Patient Instructions Follow-up Provider: Jeana Reyes DO Follow-up with PCP in: 1 week Provider: Yared Hastings MD Follow-up in: 2 weeks Jaden Osman MD Sep 10, 2016 16:57
[2016-09-10] MEDS ORDERED: POTA20TA16 PO (17:02)
[2016-09-10] MEDS ORDERED: POLY17PO6 PO (17:02)
--- NOTE | 2016-09-10 18:21 | NUR ---
DISCHARGE Patient discharged home at 1800 ambulated off floor accompanied by RN and . All instructions for diet, activity, medications, new prescriptions and follow-up reviewed with patient who reports understanding. Patient's vitals stable, denies pain and in no apparent distress. Patient's peripheral IV left in as patient is reporting [place] [facility] [place] ABX infusion. aware. ABX prescription filled out and sent to [facility]. All belongings returned.
--- NOTE | 2016-09-11 00:07 | PCM.DC.MED ---
Discharge Summary Date of Service Sep 10, 2016 Dates of Hospitalization Date of Hospital Admission Sep 05, 2016 at 01:13 Date of Discharge: Sep 10, 2016 Providers: Admitting Physician: Juan Qureshi MD Primary Care Physician: Nopcp Attending Physician: Juan Qureshi MD Diagnosis at Time of Discharge Diagnosis at Time of Discharge Cellulitis of the Right Lower Extremity with Staph warneri Bacteremia Consultations Dr. Yared Hastings of infectious disease Procedures XRay, CTs & MRIs PROCEDURE: US EXTREMITY SONOGRAM LIMITED ([id number]) INDICATIONS: r/u abscess TECHNIQUE: Real-time scanning was performed of the anterior aspect of the right lower leg, with image documentation. COMPARISON: None. FINDINGS: There is a prominent amount of edema in the subcutaneous tissues. No loculated fluid collection is seen. There is increased vascularity somewhat generalized, not around any particular focus or fluid collection or phlegmonous area. IMPRESSION: Prominent amount of edema and no evidence for abscess. Dictated by: Calderon Merrill M.D. on 09/07/2016 at 14:53 Approved by: Calderon Merrill M.D. on 09/07/2016 at 14:55 [facility] [place] [address] [facility] [place] [address] 360Patient Name: CHAU PAINTER MR#: [id number] Location: [facility] Ordering Phys: RadhaButch nevarez Date of Service: 09/05/16 0317 PROCEDURE: CT ABDOMEN AND PELVIS WITH CONTRAST ([id number]) INDICATIONS: Abdominal pain TECHNIQUE: After the administration of oral and intravenous contrast, 5 mm thick sections acquired from the diaphragms to the symphysis. 5 mm thick coronal and sagittal reformats were performed. For radiation dose reduction, the following was used : automated exposure control, adjustment of mA and/or kV according to patient size. COMPARISON: [facility], CT, CT ABD PELVIS W CON, 06/04/2015, 2:28. FINDINGS: Image quality: Excellent. ABDOMEN: Lung bases: Minimal left pleural effusion and dependent changes. The previously identified 5 mm left lower lobe nodule is less prominent on today's exam. Solid organs: Liver is shrunken and nodular.. There are multiple punctate foci of low attenuation, unchanged. Gallbladder demonstrates numerous dependent calcifications without wall thickening. No interval change. The spleen is enlarged. Biliary system is non-dilated. Pancreas enhances normally. No adrenal nodules. Kidneys are normal in size and enhancement, without hydronephrosis. Peritoneum and bowel: Stomach, small bowel, and colon loops are nonobstructed. There is a mildly thickened appearance of scattered small bowel loops, also incompletely distended. No free fluid or air. There is distal esophageal thickening with hiatal hernia. Nodes and vessels: No retroperitoneal or mesenteric adenopathy. Aorta and inferior vena cava are normal in caliber. Prominent splenic and gastroesophageal varices are present. There are numerous varices identified within the abdomen and pelvis particularly in the right bibi-abdomen. 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 There is recanalization of the umbilical vein. Splenorenal shunt is present. Miscellaneous: No ventral hernias. PELVIS: Genitourinary: Bladder wall thickness is normal. Miscellaneous: No inguinal hernias or adenopathy. Bones: No suspicious bony lesions. No vertebral body compression fractures. IMPRESSION: 1. Trace left pleural effusion and dependent changes. 2. Cirrhotic appearing liver with splenomegaly and extensive collateral system as well as unchanged partial portal vein thrombosis as above. 3. Mild, incomplete distention of small bowel loops with appearance of thickening. This could be related to incomplete distention versus enteritis and clinical correlation is recommended. Dictated by: Krystle Ambriz M.D. on 09/05/2016 at 9:03 Approved by: Krystle Ambriz M.D. on 09/05/2016 at 9:50 Cardiac Echo Impression Echocardiogram Report Name: CHAU PAINTER PStudy Date: 01/2017 Height: 74 in Hospital Exam Location: [facility] Weight: 231 lb Gender: Male BSA: 2.3 m2 : 1965 Age: 51 yrs BP: 144/70 mmHg Reason For Study: BACTEREMIA Ordering Physician: Performed By: Melinda [facility] Interpretation Summary 1) Mild concentric left ventricular hypertrophy with normal size, normal wall motion, and normal systolic function (EF 60-65%). 2) Normal right ventricular size and function. 3) No signifcant valvular abnormalities. 4) Elevated right sied filling pressures based on IVC assessment. 5) Bilateral pleural effusion present, left worse than right. 6) No prior Echo available for comparison. No vegetations present on this study but consider RENY if there is clinical suspicion for endocarditis. Brief History Chau is a pleasant 51-year-old male with past medical history of liver cirrhosis diagnosed age 2.5 following a liver biopsy, history of cholelithiasis , and is not a surgical candidate due to his liver cirrhosis, history of esophageal varices, who presented to the ED for acute onset fever of 102.9 shortly after having eaten his dinner, with associated chills, rigors, nausea, and mild wheeze and headache onset 1715 on 09/04/2016. Patient states he felt ill suddenly, took one single dose of Motrin and 45 minutes later his temperature was 104.0 prompting his visit to the emergency department. Of note patient states he had very little to drink today and was only able to urinate a small amount of dark-colored urine. Patient denies chest pain, asthma, COPD, diaphoresis, cough, vomiting, diarrhea, constipation, abdominal pain, dysuria. Patient's cut in worker is Dr. Estela mauricio at [facility]. Patient states he has a scheduled appointment on October 01 for endoscopy for 2 evaluate his esophageal varices which takes place every 2 years. Patient was admitted to the hospital for fever of unknown origin. Hospital Course Chau is a pleasant 51-year-old male with past medical history of liver cirrhosis diagnosed age 2.5 following a liver biopsy, history of cholelithiasis , and is not a surgical candidate due to his liver cirrhosis, history of esophageal varices, who presented to the ED for acute onset fever of 102.9 shortly after having eaten his dinner, with associated chills, rigors, nausea, and mild wheeze and headache onset 1715 on 09/04/2016. Patient states he felt ill suddenly, took one single dose of Motrin and 45 minutes later his temperature was 104.0 prompting his visit to the emergency department. Of note patient states he had very little to drink today and was only able to urinate a small amount of dark-colored urine. Patient denies chest pain, asthma, COPD, diaphoresis, cough, vomiting, diarrhea, constipation, abdominal pain, dysuria. Patient's cut in worker is Dr. Estela mauricio at [facility]. Patient states he has a scheduled appointment on October 01 for endoscopy for 2 evaluate his esophageal varices which takes place every 2 years. Patient was admitted to the hospital for fever of unknown origin. # Bacteremia with Coagulase-negative staph. 4 out of 4 blood culture bottles were positive. -He was started on vancomycin which has been discontinued and Ancef has been started -Repeat blood cultures are negative -Unknown etiology, possible right lower extremity cellulitis -CT positive for possible enteritis with dilated loops of small bowel but no bowel obstruction -Fevers have resolved -- On Cefazolin IV, day #5 of abx -- Dr. Hastings was consulted for an infectious disease opinion and his impression and recommendations are as follows: "IMPRESSION: This is a strange case of a gentleman with cirrhosis since he was a basically a toddler which currently has been biopsy confirmed and he has been followed for many years by different hepatologists, currently Dr. Ley at the [facility] for this cirrhosis with varices. Despite this, patient is able to carry on a pretty normal life and is usually free of significant complications of his cirrhosis. He presented with what sounds like a right lower extremity cellulitis and has improved dramatically with vancomycin and Zosyn. Interestingly all of his blood cultures grew Staph warneri which is almost never a pathogen unless a person has indwelling hardware such as a heart valve or prosthetic joint. I am a little uncertain in terms of what to do next with his antibiotics but in view of the fact he looks dramatically better, I think our best approach would be to simply finish a two-week course of intravenous antibiotics directed at the Staph warneri which is very much oxacillin and cephalosporin susceptible. RECOMMENDATIONS: 1. Ceftriaxone 2 g once a day IV through September 19. 2. Weekly labs will be ordered. 3. The patient will follow up with me in my clinic on the which could be just prior to the conclusion of these antibiotics. 4. This case discussed with Dr. Osman, who is the current attending on the case. 5. Will attempt to get the records from the hospital in [place], [place] and also to speak briefly to Dr. Ley at [facility]. Thank you very much for this complex consultation." I discussed the case with Dr. Hastings and will follow his recommendations. # Periumbilical and suprapubic abdominal pain, present on admission, active -May be viral enteritis, unclear at this point. No recent sick contacts # Transaminitis, present on admission, active - AST 115, ALT 66 - Likely secondary to chronic liver cirrhosis and cholelithiasis - We will continue home medication ursodiol # Lactic acidosis, present on admission, active - Lactic acidosis resolved #Thrombocytopenia, present remission, active - Secondary to chronic liver cirrhosis Chronic problems Cirrhotic liver disease. - Patient was diagnosed with liver cirrhosis at age 2.5 years old - Patient has old surgical scar on the abdomen from biopsy at age 1 - Patient also has history of alcohol abuse in life however has no longer drinks alcohol. Cholelithiasis. Esophageal varices. -Patient has appointment with Dr. Frances at [facility] for upper endoscopy on October 01 GI Bleed. Patient does not take any pain medications. CODE STATUS: Full code DVT prophylaxis: Heparin products contraindicated with thrombocytopenia, patient was on enoxaparin which is also contraindicated for platlet count<50. Stopped it today Disposition: Patient is likely to be discharged home today to continue IV antibiotics with Rocephin through 09/19/2016. Exam Vital Signs (Last) Date Time Temp Pulse Resp B/P Pulse Ox O2 Delivery O2 Flow Rate FiO2 09/10/16 15:45 Supplement Oxygen 09/10/16 11:24 82 09/10/16 10:07 36.6 16 121/73 97 09/05/16 08:41 4.00 Exam General: Patient is lying supine in bed in no apparent distress. HEENT: Head is atraumatic and normocephalic. Eyes: Pupils are equally round and reactive to light and accommodation. Extraocular muscles are intact. Sclera are white, anicteric. Subconjunctival mucosa is pink. Ears and nose are unremarkable. Oropharynx: There is no mucosal lesions, there is no thrush, there is no pharyngitis. Neck: Is supple, there are no nodes, or masses or tenderness. Chest: Is clear to auscultation and percussion. There are no rales, rhonchi, wheezes or rubs. There are slightly diminished breath sounds at the bases. Heart: Rate, rhythm is regular. There is no murmur, rub or gallop. Abdomen: Good bowel sounds are present. Abdomen is soft, nontender, no organomegaly or masses were appreciated. Extremities: Are symmetrical and well perfused. There is 2+ bilateral edema, there is still some cellulitis of the right lower extremity which continues to appear markedly improved and the patient agrees to this. There is no rash. Neurologic: There are no focal neurological deficits. Cranial nerves II through XII are intact. There are no sensory or motor deficits. Psychiatric: Patients mood is calm and shows no sign of agitation. Genital: Deferred Rectal: Deferred Test 09/04/16 22:10 09/04/16 23:43 09/06/16 07:20 09/07/16 05:56 Prothrombin Time 12.5sec (8.1-12.5) Prothromb Time International Ratio 1.16ratio Troponin T 0.010ug/L (0.0-0.011) Pro-B-Type Natriuretic Peptide 38.84pg/mL (0-121) Procalcitonin 0.24ng/mL (0.00-0.08) Urine Color Cee (YELLOW) Urine Appearance Hazy (CLEAR,HAZY) Urine pH 6.0 (5.0-8.0) Urine Specific [place] 1.036 (1.003-1.035) Urine Protein 30mg/dL (NEG,TRACE) Urine Glucose (UA) 100mg/dL (NEGATIVE) Urine Ketones 15mg/dL (NEGATIVE) Urine Occult Blood Negative (NEGATIVE) Urine Nitrite Positive (NEGATIVE) Urine Bilirubin Moderate (NEGATIVE) Urine Ictotest Positive (Negative) Urine Urobilinogen >8mg/dL (NORMAL) Urine Leukocyte Esterase Negative (NEGATIVE) Urine RBC 0-2/hpf (0-2) Urine WBC 0-5/hpf (0-5) Urine Epithelial Cells Few/hpf (NONE-MOD) Urine Crystals None seen (NONE SEEN) Urine Bacteria Few/hpf (NONE-FEW) Urine Hyaline Casts None/lpf (NONE) Urine Granular Casts None seen (NONE SEEN) Urine Waxy Casts None seen (NONE SEEN) Urine Red Blood Cell Casts None seen (NONE SEEN) Urine White Blood Cell Casts None seen (NONE SEEN) Urine Mucus Present (None Seen) Urine Trichomonas None seen (NONE SEEN) Urine Yeast None (NONE SEEN) Urinalysis Comment Urine Culture Reflexed Indicated Lactic Acid Level 1.4mmol/L (0.4-2.0) Hemoglobin A1c 4.3% (4.8-5.6) Test 09/07/16 10:10 09/10/16 05:55 Vancomycin Level Trough 5.7mcg/mL White Blood Count 4.2th/mm3 (3.8-10.1) Red Blood Count 3.93mil/mm3 (4.40-5.80) Hemoglobin 13.1g/dL (13.8-17.2) Hematocrit 37.5% (41.0-50.0) Mean Corpuscular Volume 95.4fL (81-100) Mean Corpuscular Hemoglobin 33.3pg (27.0-35.0) Mean Corpuscular Hemoglobin Concent 34.9% (32.0-37.0) Red Cell Distribution Width 15.3% (12.3-15.4) Platelet Count 58bil/L (150-400) Neutrophils (%) (Auto) 57.8% (40-74) Lymphocytes (%) (Auto) 26.2% (14-46) Monocytes (%) (Auto) 7.8% (4-12) Eosinophils (%) (Auto) 6.8% (0-5) Basophils (%) (Auto) 0.7% (0-3) Sodium Level 139mEq/L (134-144) Potassium Level 4.0mEq/L (3.5-5.2) Chloride Level 109mEq/L (97-108) Carbon Dioxide Level 20mmol/L (18-29) Blood Urea Nitrogen 9mg/dL (6-24) Creatinine 0.61mg/dL (0.76-1.27) Estimat Glomerular Filtration Rate 147mL/min (>59) Glucose Level 105mg/dL (60-99) Calcium Level 8.2mg/dL (8.5-10.1) Magnesium Level 1.8mg/dL (1.6-2.6) Total Bilirubin 1.5mg/dL (0.0-1.2) Aspartate Amino Transf (AST/SGOT) 41U/L (0-50) Alanine Aminotransferase (ALT/SGPT) 40U/L (0-44) Alkaline Phosphatase 87U/L (25-150) Total Protein 5.2g/dL (6.4-8.4) Albumin 2.9g/dL (3.4-5.0) Microbiology Results Name: CHAU PAINTER Age/Sex: 51/M Attend Dr: Juan Qureshi MD Acct: [id number] Unit: [id number] Status: ADM IN Location: [facility] 2027-06 Re09/05/16 Disch: Specimen: [id number] Collected: 09/04/16 Status: EVELYN Req#: [id number] Received: 09/04/16 Source: BLOOD Sp Desc : AA Subm Dr: Raghav Wang MD Ordered: Comments: Collected by Nurse/Unit? Y/N N Procedure Result Verified Site Microbiology ELIJAH CULTURE BLOOD Final 09/07/16-075 Organism 1 COAG NEGATIVE STAPHYLOCOCCUS GRAM STAIN RESULT GRAM POSITIVE COCCI ?STAPH BC BOTTLE Isolated from Aerobic Bottle of Set Drawn DATE CALLED: 09/05/16 TIME CALLED: [id number] CALLED BY: PAUL FLOOR/DOCTOR: CARLEEN/CHACHA Kaur BC READ BACK YES TYPE OF DRAW PERIPHERAL DRAW TIME OF POSITIVITY 2200 GRAM STAIN RESULT GRAM POSITIVE COCCI ?STAPH BC BOTTLE2 Isolated from Anaerobic Bottle of Set Drawn DATE CALLED: 09/06/16 TIME CALLED: [id number] CALLED BY: RIRI FLOOR/DOCTOR: CARLEEN/MARIO Strange BC READ BACK Y TYPE OF DRAW PERIPHERAL DRAW TIME OF POSITIVITY 1119 COAG NEGATIVE STAPHYLOCOCCUS SPESICE WARNERI ISOLATED FROM FOUR OF FOUR BOTTLES COLLECTED 09/04 For sensitivities see other set collected same day 09/04/16 Urine Culture - Final, Complete No growth (<1,000 organisms/mL) Discharge Medications Discharge Medications Furosemide (Furosemide) 40 Mg Tablet 40 MG PO DAILY (Reported) Nadolol (Nadolol) 80 Mg Tablet 80 MG PO DAILY (Reported) Potassium Chloride (Potassium Chloride) 20 Meq Tab.er.prt 20 MEQ PO DAILYWM Prescribed by: RHODA OSMAN MD Spironolactone (Spironolactone) 50 Mg Tablet 50 MG PO BID (Reported) Ursodiol (Ursodiol) 500 Mg Tablet 500 MG PO BID (Reported) As needed Polyethylene Glycol 3350 (Miralax) 17 Gm Powd.pack 17 GM PO DAILY PRN PRN For Constipation Prescribed by: RHODA OSMAN MD Followup Plan Disposition: Patient is being discharged home. Discharge Diet: Heart Healthy Discharge Activity: Other (Patient may return to usual activities gradually as tolerated. When not ambulatory patient is to keep legs elevated.) Follow-up Provider: Jeana Reyes DO Follow-up with PCP in: 1 week Provider: Yared Hastings MD Follow-up in: 2 weeks Time spent Time spent on discharging this patient was greater than 35 minutes, over half of which was involved in counseling and coordination of care. Jaden Osman MD Sep 11, 2016 00:07
[2016-09-11] MEDS ORDERED: cefTRIAXone Inj 2,000 MG in Dextrose 5% Minibag Plus 50 ML IV SCH (15:00)
== END 2016-09-10 18:07 | disposition home or self-care (01) | DRG 603 ==
LOC: SED 21:56 → OBSVTOIN 09-05 01:13 → PCC 09-05 01:13 → MPC 09-07 21:04
PROVIDERS: ADMIT Family Medicine; ATTEND Family Medicine
DX: L03.115 Cellulitis of right lower limb (principal); E87.2 Acidosis; R78.81 Bacteremia; R50.9 Fever, unspecified; E86.0 Dehydration; R74.0 Nonspecific elevation of levels of transaminase and lactic acid dehydrogenase [LDH]; R82.4 Acetonuria; R82.2 Biliuria; R73.9 Hyperglycemia, unspecified; D69.6 Thrombocytopenia, unspecified; K74.60 Unspecified cirrhosis of liver; R10.33 Periumbilical pain; R10.84 Generalized abdominal pain; B95.7 Other staphylococcus as the cause of diseases classified elsewhere